=== PATIENT | female | born 1970 | race Caucasian/White ===

== ENCOUNTER 2025-03-04 10:31 | Day surgery (SDC) | payer OTHER, SELFPAY ==
--- OUTSIDE RECORDS SUMMARY | 2024-03-23 06:00 | XMS_ITS ---
Author Organization [facility] Address [address] [place] [address] Care Team Providers Care Tour Counselor Name Role Phone Ruth Holguin Primary Care Provider Kim Palencia Unavailable REASON FOR VISIT 6 month f/u CHRONIC Social History Sex Assigned At : Social History Observation Description Sex Assigned At Female Encounters Encounter Location Date Provider Diagnosis [facility] [address] [place] [address] 03/23/2024 Kim Palencia Plan Of Treatment No Information Progress Notes * MARIA DEL ROSARIO DUGGAN LDOB:1969 (55 yo F)Acc No.[id number]:03/23/2024 Progress Notes Patient: MARIA DEL ROSARIO ZENG Appointment Provider: Nguyễn Palencia NP :1970 A ge:54 Y S ex:Female Date:03/23/2024 Address:[address] [place] [address] RD, A PT Elieser FERANTONIONguyễnCOX [id number] Pcp:Ruth Holguin Subjective: * Chief Complaints: * 1 . 6 month f/u CHRONIC. * Medical History: Objective: * Vitals: Assessment: Plan: * Treatment: * Images: * Electronic signature of Payton Palencia CNP on 03/04/2025 at 10:37 AM EDT Sign off status: Pending * Appointment Provider: Nguyễn Palencia NP Date: 0 03/23/2024 Generated for Printing/Faxing/eTransmitting on: 0 03/04/2025 10:37 AM EDT
--- OUTSIDE RECORDS SUMMARY | 2024-03-24 06:30 | XMS_ITS ---
Author Organization [facility] Address [address] [facility] [place] [address] Care Team Providers Care Training Facilitator Name Role Phone Ruth Holguin Primary Care Provider [phone] REASON FOR VISIT 6 month f/u CHRONIC Social History Sex Assigned At : Social History Observation Description Sex Assigned At Female Encounters Encounter Location Date Provider Diagnosis [facility] [address] [place] [address] 03/24/2024 Ruth Holguin Plan Of Treatment No Information Progress Notes * URBANBALDEVNA LDOB:1969 (55 yo F)Acc No.[id number]:03/24/2024 Progress Notes Patient: MARIA DEL ROSARIO ZENG Provider: Elieser Holguin :1970 A ge:54 Y S ex:Female Date:03/24/2024 Address:[address] [place] [address], A PT [place]INA Mon, [id number] Subjective: * Chief Complaints: * 1 . 6 month f/u CHRONIC. * Medical History: Objective: * Vitals: Assessment: Plan: * Treatment: * Images: * Electronic signature of Joaquin Holguin CNP on 03/04/2025 at 10:37 AM EDT Sign off status: Pending * Provider: Elieser Holguin Date: 03/24/2024 Generated for Jarred carr/Hayley/eTransmitting on: 03/04/2025 10:37 AM EDT
--- OUTSIDE RECORDS SUMMARY | 2024-05-20 07:00 | XMS_ITS ---
Author Organization [facility] Address [address] [facility] [place] [address] Care Team Providers Care Twisting Frame Fixer Name Role Phone Ruth Holguin Primary Care Provider REASON FOR VISIT chronic care f/u Social History Sex Assigned At : Social History Observation Description Sex Assigned At Female Encounters Encounter Location Date Provider Diagnosis [facility] [address] [place] [address] 05/20/2024 Ruth Holguin Plan Of Treatment No Information Progress Notes * JENNIFERBALDEV JANSENNA LDOB:1969 (55 yo F)Acc No.[id number]:05/20/2024 Progress Notes Patient: MARIA DEL ROSARIO ZENG Provider: Elieser Holguin :1970 A ge:54 Y S ex:Female Date:05/20/2024 Address:[address] [place] [address], A PT [place], [id number] Subjective: * Chief Complaints: * 1 . Chronic care f/u. * Medical History: Objective: * Vitals: Assessment: Plan: * Treatment: * Images: * Electronic signature of Joaquin Holguin CNP on 03/04/2025 at 10:38 AM EDT Sign off status: Pending * Provider: Elieser Holguin Date: 0 05/20/2024 Generated for Jarred carr/Hayley/eTransmitting on: 0 03/04/2025 10:38 AM EDT
[2025-03-04] VITALS (8 sets, daily range): BP systolic 121–144; BP diastolic 71–90; PULSE 64–89; TEMP 36.3–36.4; O2SAT 94–100; BMI 43.4
--- OUTSIDE RECORDS SUMMARY | 2025-03-04 10:37 | XMS_ITS | Encounter Summary ---
Author Organization [facility] Address [address] [place] [address] Phone Care Team Providers Care Software Quality Assurance Engineer Name Role Phone Kim Palencia APRN-INSTRUMENTAL MUSIC TEACHER Primary Care P rovider Kim Palencia APRN-INSTRUMENTAL MUSIC TEACHER Primary Care P rovider Encounter Details Date Type Department Care Team (Late st Contact Info) Description 03/29/2023 Scanned Document [facility] [address] [place] [address] Conversion, Onbase Social History Tobacco Use Types Packs/Day Years Used Date Smoking Tobacco: Never Assessed Comments Unknown Sex and Gender Information Value Date Recorded Sex Assigned at Not on file Legal Sex Female 4:43 PM EST Gender Identity Not on file Sexual Orientation Not on file documented as of this encounter Plan of Treatment Not on file documented as of this encounter Procedures Procedure Name Priority Date/Time Associated Diagnosis Comments OUTSIDE IMAGING SCAN 03/29/2023 OUTSIDE IMAGING SCAN 03/29/2023 ELECTROCARDIOGRAM RHYTHM STRIP 03/29/2023 documented in this encounter Results * OUTSIDE IMAGING SCAN (03/29/2023) Anatomical Region Laterality Modality Other Narrative 03/29/2023 Ordered by an unspecified provider. us Onbase Conversion OUTSIDE SCAN Final Result * OUTSIDE IMAGING SCAN (03/29/2023) Anatomical Region Laterality Modality Other Narrative 03/29/2023 Ordered by an unspecified provider. us Onbase Conversion OUTSIDE SCAN Final Result * ELECTROCARDIOGRAM RHYTHM STRIP (03/29/2023) Narrative 03/29/2023 Ordered by an unspecified provider. us Onbase Conversion ECG ORDERABLES Final Result documented in this encounter Visit Diagnoses Not on filedocumented in this encounter Care Teams Software Quality Assurance Engineer Relationship Specialty Start Date End Date Kim Palencia APRN-CNP [address] [place] [address] PCP - General 04/23/23 Kim Palencia APRN-CNP [address] [place] [address] PCP - General 03/31/23 04/22/23 documented as of this encounter
--- OUTSIDE RECORDS SUMMARY | 2025-03-04 10:37 | XMS_ITS | Encounter Summary ---
Author Organization [facility] Address [address] [place] [address] Care Team Providers Care Long Lines Operator Name Role Phone Karen Varela MD Primary Care Provider [phone] Karen Varela MD Unavailable [phone] Encounter Details Date Type Department Care Team (Late st Contact Info) Description 12/16/2023 Orders Only [facility] [place] [address] [facility] [address] [place] [address] Vilma Heard MA Social History Tobacco Use Types Packs/Day Years Used Date Smoking Tobacco: Never Passive Smoke Exposure: Never Smokeless Tobacco: Never Alcohol Use Standard Drinks/Week Comments Never 0 (1 standard drink = 0.6 oz pur e alcohol) caffeine intake: 2-3 cups/day AUDIT-C Answer Date Recorded Q1: How often do you have a drink containing alcohol? Never 01/22/2023 Q2: How many drinks containi ng alcohol do you have on a typical day when you are drinking? Patient does not drink Q3: How often do you have si x or more drinks on one occasion? Never 01/22/2023 PHQ-2 Answer Date Recorded Patient Health Questionnaire-2 Score 0 01/22/2023 Comments No Sex and Gender Information Value Date Recorded Sex Assigned at Not on file Legal Sex Female 10:14 PM EDT Gender Identity Not on file Sexual Orientation Not on file documented as of this encounter Plan of Treatment Upcoming Encounters Date Type Department Care Team (Late Contact Info) Description 03/10/2025 9:30 AM EDT Office Visit [facility] [address] [place] [address] Aron Rivers, DO [address] [place] [address] documented as of this encounter Procedures Procedure Name Priority Date/Time Associated Diagnosis Comments MRI HEAD/BRAIN WO CONTRAS Routine 12/16/2023 8:16 AM EDT documented in this encounter Results * MRI HEAD/BRAIN WO CONTRAS (12/16/2023 8:16 AM EDT) Anatomical Region Laterality Modality Radiographic Shaila ging us Suzie Palencia ENGRAVING PRESS OPERATOR IMG XR PROCEDURES Final Resul t documented in this encounter Visit Diagnoses Not on filedocumented in this encounter Care Teams Long Lines Operator Relationship Specialty Start Date End Date Karen Varela MD [address] [place] [address] PCP - General Family Medicine 03/04/24 Karen Varela MD [address] [place] [address] PCP - Medical [place] Commercial 08/26/23 08/25/99 documented as of this encounter
--- OUTSIDE RECORDS SUMMARY | 2025-03-04 10:37 | XMS_ITS | Encounter Summary ---
Author Organization [facility] Address [address] [place] [address] Phone Care Team Providers Care Polyethylene Bag Machine Operator Name Role Phone Kim Palencia APRN-MEDICAL ASSISTANT Primary Care P rovider Kim Palencia APRN-MEDICAL ASSISTANT Primary Care P rovider Encounter Details Date Type Department Care Team (Late st Contact Info) Description 03/30/2023 Scanned Document [facility] LE[facility] [address] [place] [address] Conversion, Onbase Social History Tobacco Use Types [...] Date/Time Associated Diagnosis Comments OUTSIDE IMAGING SCAN 03/30/2023 ELECTROCARDIOGRAM RHYTHM STRIP 03/30/2023 documented in this encounter Results * OUTSIDE IMAGING SCAN (03/30/2023) Anatomical Region Laterality Modality Other Narrative 03/30/2023 Ordered by an unspecified provider. us Onbase Conversion OUTSIDE SCAN Final Result * ELECTROCARDIOGRAM RHYTHM STRIP (03/30/2023) Narrative 03/30/2023 Ordered by an unspecified provider. us Onbase Conversion ECG ORDERABLES Final Result documented in this encounter Visit Diagnoses Not on filedocumented in this encounter Care Teams Polyethylene Bag Machine Operator Relationship Specialty Start Date End Date Kim Palencia APRN-CNP [address] [place] [address] PCP - General 04/23/23 Kim Palencia APRN-CNP [address] [place] [address] PCP - General 03/31/23 04/22/23 documented as of this encounter
--- OUTSIDE RECORDS SUMMARY | 2025-03-04 10:37 | XMS_ITS | Encounter Summary ---
Author Organization [facility] Address [address] [place] [address] Phone Care Team Providers Care Water Service Dispatcher Name Role Phone Kim Palencia Primary Care P rovider Kim Palencia Primary Care P rovider Encounter Details Date Type Department Care Team (Late st Contact Info) Description 03/29/2023 Orders Only [facility] [address] [place] [address] Conversion, Onbase Social History Tobacco Use Types Packs/Day Years Used Date Smoking Tobacco: Never Assessed Comments Unknown Sex and Gender Information Value Date Recorded Sex Assigned at Not on file Legal Sex Female 4:43 PM EST Gender Identity Not on file Sexual Orientation Not on file documented as of this encounter Plan of Treatment Scheduled Orders Name Type Priority Associated Diagnoses Orde r Schedule OUTSIDE LAB SCAN Lab Ordered: 03/29/2023 documented as of this encounter Visit Diagnoses Not on filedocumented in this encounter Care Teams Water Service Dispatcher Relationship Specialty Start Date End Date Kim Palencia APRN-CNP [address] [place] [address] PCP - General 04/23/23 Kim Palencia APRN-CNP [address] [place] [address] PCP - General 03/31/23 04/22/23 documented as of this encounter
--- OUTSIDE RECORDS SUMMARY | 2025-03-04 10:38 | XMS_ITS | Encounter Summary ---
Author Organization [facility] Address [facility] [place] [address] Care Team Providers Care Coffin Maker Name Role Phone Kim Palencia APRN-FIRST AID ATTENDANT Primary Care Pro vider Encounter Details Date Type Department Care Team (Late st Contact Info) Description 04/24/2023 Orders Only [facility] [address] [place] [phone] External, Scanning Provider Social History Tobacco Use Types Packs/Day Years Used Date Smoking Tobacco: Never Smokeless Tobacco: Never Alcohol Use Standard Drinks/Week Comments Not Currently 0 (1 standard drink = 0.6 oz pur e alcohol) Childcare Answer Date Recorded Childcare Unknown 02/04/2019 Employment Answer Date Recorded Employment Unknown 02/04/2019 Comments Unknown Sex and Gender Information Value Date Recorded Sex Assigned at Not on file Legal Sex Female 11:16 PM EDT Gender Identity Not on file Sexual Orientation Not on file documented as of this encounter Plan of Treatment Not on file documented as of this encounter Procedures Procedure Name Priority Date/Time Associated Diagnosis Comments VASC VENOUS DUPLEX UPPER RIGHT Routine 04/13/2023 11:26 AM EDT LIPID PROFILE Routine 03/31/2023 11:24 AM EDT MULTIPLE LABS Routine 03/31/2023 11:23 AM EDT ECHO COMPLETE WO CONTRAST Routine 03/31/2023 11:21 AM EDT ECG 12-LEAD Routine 03/30/2023 11:21 AM EDT documented in this encounter Results * Vas venous duplex upr single right (04/13/2023 11:26 AM EDT) Anatomical Region Laterality Modality Vascular Right Ultrasound us Scanning Provider External CV VASCULAR ORDERABLE S Final Result * Lipid profile (03/31/2023 11:24 AM EDT) External Cholesterol 163 MANUALLY TRANSCRIBED RESULTS External Cholesterol:Hdl 2.5 MANUALLY TRANSCRIBED RESULTS External Hdl Cholesterol 64 MANUALLY TRANSCRIBED RESULTS External Ldl (Calc) 91 MANUALLY TRANSCRIBED RESULTS External Triglycerides 40 MANUALLY TRANSCRIBED RESULTS External Very Low Lipoprotein 8 MANUALLY TRANSCRIBED RESULTS us Scanning Provider External LAB BLOOD ORDERABLES Edited Result - Final Performing Organization Address [facility] de Phone Number MANUALLY TRANSCRIBED RESULTS * Multiple labs (03/31/2023 11:23 AM EDT) us Scanning Provider External [place] [facility] Final Result Performing Organization Address [facility] de Phone Number MANUALLY TRANSCRIBED RESULTS * Echo complete W/O contrast (03/31/2023 11:21 AM EDT) Anatomical Region Laterality Modality Chest N/A Ultrasound us Scanning Provider External CV ECHO ORDERABLES Fi nal Result * ECG 12 lead (03/30/2023 11:21 AM EDT) us Scanning Provider External ECG ORDERABLES Final Result Performing Organization Address [facility] de Phone Number MANUALLY TRANSCRIBED RESULTS documented in this encounter Visit Diagnoses Not on filedocumented in this encounter Care Teams Coffin Maker Relationship Specialty Start Date End Date Kim Palencia, INSTRUCTOR WARPER-FIRST AID ATTENDANT PCP - General Nurse Practitioner 09/08/21 documented as of this encounter
--- OUTSIDE RECORDS SUMMARY | 2025-03-04 10:38 | XMS_ITS | Encounter Summary ---
Author Organization [employer] Address [id number] [address] [place] [address] Care Team Providers Care Stenographic Court Reporter Name Role Phone Kim Palencia APRN-FURRIER DESIGNER Primary Care Pro vider Encounter Details Date Type Department Care Team (Late st Contact Info) Description 09/15/2021 Orders Only [facility] [address] [place] [phone] Jose Carlos Car MD [address] [place] [address] Hypotension, unspecified hypotension type Social History Tobacco Use Types Packs/Day Years [...] on file Sexual Orientation Not on file COVID-19 Exposure Response Date Recorded In the last month, have you been in contact with someone who was confirmed or suspected to have Coronavirus / COVID-19? No / Unsure 09/08/2021 9:26 AM EST documented as of this encounter Plan of Treatment Not on file documented as of this encounter Procedures Procedure Name Priority Date/Time Associated Diagnosis Comments BASIC METABOLIC PANEL Routine 09/15/2021 Hypotension, unspecified hypotension type documented in this encounter Results * Basic Metabolic Panel (09/15/2021) 09/15/2021 us Jose Carlos Car MD LAB BLOOD ORDERABLES Final Res ult [employer] documented in this encounter Visit Diagnoses Diagnosis Hypotension, unspecified hypotension type documented in this encounter Care Teams Stenographic Court Reporter Relationship Specialty Start Date End Date Kim Palencia, MOTOR BIKE MECHANIC-FURRIER DESIGNER PCP - General Nurse Practitioner 09/08/21 documented as of this encounter
--- OUTSIDE RECORDS SUMMARY | 2025-03-04 10:38 | XMS_ITS | Encounter Summary ---
Author Organization [facility] Address [address] [place] [address] Phone Care Team Providers Care Grazing Examiner Name Role Phone Kim Palencia Primary Care P rovider Kim Palencia Primary Care P rovider Encounter Details Date Type Department Care Team (Late st Contact Info) Description 04/11/2023 Scanned Document [facility] [address] [place] [place] [address] Conversion, Onbase Social History Tobacco Use Types [...] Date/Time Associated Diagnosis Comments OUTSIDE IMAGING SCAN 04/11/2023 documented in this encounter Results * OUTSIDE IMAGING SCAN (04/11/2023) Anatomical Region Laterality Modality Other Narrative 04/11/2023 Ordered by an unspecified provider. us Onbase Conversion OUTSIDE SCAN Final Result documented in this encounter Visit Diagnoses Not on filedocumented in this encounter Care Teams Grazing Examiner Relationship Specialty Start Date End Date Kim Palencia APRN-CNP [address] [place] [address] PCP - General 04/23/23 Kim Palencia, TERRITORY BUSINESS MANAGER-TIN CAN LABORER Formerly [facility] [place] [address] PCP - General 03/31/23 04/22/23 documented as of this encounter
--- OUTSIDE RECORDS SUMMARY | 2025-03-04 10:38 | XMS_ITS | Encounter Summary ---
Author Organization [facility] Address [address] [place] [address] Care Team Providers Care Sonoscope Operator Name Role Phone Karen Varela MD Primary Care Provider [phone] Karen Varela MD Unavailable [phone] Encounter Details Date Type Department Care Team (Late st Contact Info) Description 05/04/2024 Orders Only [facility] [address] [place] [address] Christy Burkett MA Breast cancer screening by mammogram Social History Tobacco Use Types Packs/Day Years Used Date Smoking Tobacco: Never Passive Smoke Exposure: Never Smokeless Tobacco: Never Alcohol Use Standard Drinks/Week Comments Never 0 (1 standard drink = 0.6 oz pur e alcohol) caffeine intake: 2-3 cups/day AUDIT-C Answer Date Recorded Q1: How often do you have a drink containing alcohol? Never 03/04/2024 Q2: How many drinks containi ng alcohol do you have on a typical day when you are drinking? Patient does not drink Q3: How often do you have si x or more drinks on one occasion? Never 03/04/2024 PHQ-2 Answer Date Recorded Patient Health Questionnaire-2 Score 0 03/04/2024 Comments No Sex and Gender Information Value Date Recorded Sex Assigned at Not on file Legal Sex Female 10:14 PM EDT Gender Identity Not on file Sexual Orientation Not on file documented as of this encounter Plan of Treatment Upcoming Encounters Date Type Department Care Team (Late st Contact Info) Description 03/10/2025 9:30 AM EDT Office Visit [facility] [address] [place] [address] Aron Rivers, DO [address] [place] [address] documented as of this encounter Procedures Procedure Name Priority Date/Time Associated Diagnosis Comments BI MAMMOGRAM SCREENING TOMOSYNTHESIS BILATERAL Routine 04/20/2024 4:10 PM EDT Breast cancer screening by mammogram HM COLONOSCOPY Routine 03/09/2024 4:11 PM EDT documented in this encounter Results * Bilateral screening mammogram with tomosynthesis (04/20/2024 4:10 PM EDT) us Karen Varela MD IMG BI PROCEDURES Edited Resu lt - Final * Hm Colonoscopy (03/09/2024 4:11 PM EDT) Anatomical Region Laterality Modality Other us Noms Provider Unallocated HEALTH MAINTENANCE Final Result documented in this encounter Visit Diagnoses Diagnosis Breast cancer screening by mammogram documented in this encounter Care Teams Sonoscope Operator Relationship Specialty Start Date End Date Karen Varela MD [address] [place] [address] PCP - General Family Medicine 03/04/24 Karen Varela MD [address] [place] [address] PCP - Medical [place] [employer] 08/26/23 08/25/99 documented as of this encounter
--- OUTSIDE RECORDS SUMMARY | 2025-03-04 10:38 | XMS_ITS | Encounter Summary ---
Author Organization [facility] Address [address] [place] [address] Phone Care Team Providers Care Slot Operations Director Name Role Phone Kim Palencia Primary Care P rovider Kim Palencia Primary Care P rovider Encounter Details Date Type Department Care Team (Late st Contact Info) Description 04/01/2023 Scanned Document [facility] [address] [place] [address] Conversion, Onbase Social History Tobacco Use Types [...] Date/Time Associated Diagnosis Comments OUTSIDE IMAGING SCAN 04/01/2023 documented in this encounter Results * OUTSIDE IMAGING SCAN (04/01/2023) Anatomical Region Laterality Modality Other Narrative 04/01/2023 Ordered by an unspecified provider. us Onbase Conversion OUTSIDE SCAN Final Result documented in this encounter Visit Diagnoses Not on filedocumented in this encounter Care Teams Slot Operations Director Relationship Specialty Start Date End Date Kim Palencia APRN-CNP [address] [place] [address] PCP - General 04/23/23 Kim Palencia, GALLERY OR MUSEUM CURATOR-ADULT HEALTH CLINICAL NURSE SPECIALIST [place] [address] PCP - General 03/31/23 04/22/23 documented as of this encounter
--- OUTSIDE RECORDS SUMMARY | 2025-03-04 10:38 | XMS_ITS | Encounter Summary ---
Author Organization [facility] Address [address] [place] [address] Phone Care Team Providers Care Ore Miner Name Role Phone Kim Palencia Primary Care P rovider Encounter Details Date Type Department Care Team (Late st Contact Info) Description 01/07/2025 Scanned Document [facility] [address] [place] [phone] Scanning, Generic Provider Social History Tobacco Use Types Packs/Day Years Used Date Smoking Tobacco: Never Alcohol Use Standard Drinks/Week Comments Never 0 (1 standard drink = 0.6 oz pur e alcohol) Comments Unknown Sex and Gender Information Value Date Recorded Sex Assigned at Not on file Legal Sex Female 4:43 PM EST Gender Identity Not on file Sexual Orientation Not on file documented as of this encounter Plan of Treatment Not on file documented as of this encounter Procedures Procedure Name Priority Date/Time Associated Diagnosis Comments STRESS TEST - ONBASE SCAN 01/07/2025 documented in this encounter Results * Stress Test - Onbase Scan (01/07/2025) Narrative 01/07/2025 Ordered by an unspecified provider. us Generic Provider Scanning CV STRESS PROCEDURES F inal Result documented in this encounter Visit Diagnoses Not on filedocumented in this encounter Care Teams Ore Miner Relationship Specialty Start Date End Date Kim Palencia APRN-CNP [address] [place] [address] PCP - General 04/23/23 documented as of this encounter
--- OUTSIDE RECORDS SUMMARY | 2025-03-04 10:38 | XMS_ITS | Encounter Summary ---
Author Organization [facility] Address [address] [place] [address] Care Team Providers Care Injection Machine Operator Name Role Phone JoanWilliam Primary Care Provider [phone] Karen Varela MD Primary Care Provider [phone] Karen Varela MD Unavailable [phone] Encounter Details Date Type Department Care Team (Late st Contact Info) Description 01/19/2023 Abstract [facility] [address] [facility] [address] [place] [address] Aron Rivers DO [address] [facility] [address] [place] [address] Social History Tobacco Use Types Packs/Day Years Used Date Smoking Tobacco: Never Smokeless Tobacco: Never Tobacco Cessation:Counseling Given: Not Answered Alcohol Use Standard Drinks/Week Comments Never 0 (1 standard drink = 0.6 oz pur e alcohol) caffeine 2-3 cups/day AUDIT-C Answer Date Recorded Q1: [...] Patient Health Questionnaire-2 Score 0 01/22/2023 Comments Unknown Sex and Gender Information Value Date Recorded Sex Assigned at Not on file Legal Sex Female 10:14 PM EDT Gender Identity Not on file Sexual Orientation Not on file documented as of this encounter Functional Status * Audit-C Score Answer Date of Assessment Author 0 01/22/2023 11:02 AM ILYAT Elieser Maynard MA * Question Answer Date of Assessment Author Q1: How often do you have a drink containing alcohol? Never 01/22/2023 11:02 AM Bibiana Zabala M A Q2: How many drinks containing alcohol do you have on a typical day when you are drinking? Patient does not drink 01/22/2023 11:02 AM EDT Bibiana Maynard MA Q3: How often do you have six or more drinks on one occasion? Never 01/22/2023 11:02 AM Bibiana Zabala M A * Over the past 2 weeks, how often have you been bothered by any of the following problems? Question Answer Date of Assessment Author Little interest or pleasure in doing things Not at all 01/22/2023 11:02 AM Bibiana Zabala M A Feeling down, depressed, or hopeless Not at all 01/22/2023 11:02 AM Bibiana Zabala M A Patient Health Questionnaire -2 Score 0 01/22/2023 11:02 AM Bibiana Zabala M A documented as of this encounter Plan of Treatment Upcoming Encounters Date Type Department Care Team (Late st Contact Info) Description 03/10/2025 9:30 AM EDT Office Visit [facility] [address] [facility] [address] [place] [address] Aron Rivers DO [address] [facility] [address] [place] [address] documented as of this encounter Visit Diagnoses Not on filedocumented in this encounter Care Teams Injection Machine Operator Relationship Specialty Start Date End Date William Franco DO PCP - General 01/22/23 12/11/23 Karen Varela MD [address] [place] [address] PCP - General Family Medicine 03/04/24 Karen Varela MD [address] [place] [address] PCP - Medical [place] [employer] 08/26/23 08/25/99 documented as of this encounter
--- OUTSIDE RECORDS SUMMARY | 2025-03-04 10:38 | XMS_ITS | Encounter Summary ---
Author Organization [employer] Address [id number] [address] [place] [address] Care Team Providers Care Welding Machine Operator Plasma Arc Name Role Phone Kim Palencia APRN-ROVING CARRIER Primary Care Pro vider Encounter Details Date Type Department Care Team (Late st Contact Info) Description 03/27/2022 [facility] [address] [place] [phone] Taylor Cosme MA Hypotension due to drugs Social History Tobacco Use Types Packs/Day Years [...] have Coronavirus / COVID-19? No / Unsure 03/23/2022 9:07 AM EDT documented as of this encounter Plan of Treatment Not on file documented as of this encounter Procedures Procedure Name Priority Date/Time Associated Diagnosis Comments BASIC METABOLIC PANEL Routine 03/23/2022 Hypotension due to drugs documented in this encounter Results * Basic Metabolic Panel (03/23/2022) 03/23/2022 us Jose Carlos Car MD LAB BLOOD ORDERABLES Edited Re doreen - Final [employer] documented in this encounter Visit Diagnoses Diagnosis Hypotension due to drugs Other iatrogenic hypotension documented in this encounter Care Teams Welding Machine Operator Plasma Arc Relationship Specialty Start Date End Date Kim Palencia, SERVER ADMINISTRATOR-ROVING CARRIER PCP - General Nurse Practitioner 09/08/21 documented as of this encounter
--- OUTSIDE RECORDS SUMMARY | 2025-03-04 10:38 | XMS_ITS | Encounter Summary ---
Author Organization [employer] Address [facility] [id number] [address] [place] [address] Care Team Providers Care Clinical Trials Nurse Name Role Phone Kim Palencia APRN-CARBON PAPER COATING SUPERVISOR Primary Care Pro vider Encounter Details Date Type Department Care Team (Late st Contact Info) Description 09/08/2021 [facility] [address] [place] [phone] External, Scanning Provider Social History Tobacco Use [...] Procedure Name Priority Date/Time Associated Diagnosis Comments ECG 12-LEAD Routine 09/08/2021 PULMONARY FUNCTION TEST Routine 08/02/2021 ECG 12-LEAD Routine 07/29/2021 documented in this encounter Results * ECG 12 lead (09/08/2021) us Scanning Provider External ECG ORDERABLES Final Result Performing Organization Address [facility] Co de Phone Number MANUALLY TRANSCRIBED RESULTS * Pulmonary function test (08/02/2021) us Scanning Provider External PFT ORDERABLES Final Result Performing Organization Address [facility] de Phone Number MANUALLY TRANSCRIBED RESULTS * ECG 12 lead (07/29/2021) us Scanning Provider External ECG ORDERABLES Final Result Performing Organization Address [facility] Phone Number MANUALLY TRANSCRIBED RESULTS documented in this encounter Visit Diagnoses Not on filedocumented in this encounter Care Teams Clinical Trials Nurse Relationship Specialty Start Date End Date Kim Palencia, POWER ELECTRONICS ENGINEER-CARBON PAPER COATING SUPERVISOR PCP - General Nurse Practitioner 09/08/21 documented as of this encounter
--- OUTSIDE RECORDS SUMMARY | 2025-03-04 10:38 | XMS_ITS | Clinical Summary ---
Author Organization [employer] Address [id number] [address] [place] [address] Care Team Providers Care Insurance Producer Name Role Phone Kim Palencia APRN-COMMERCIAL FISHERMAN Primary Care Pro vider Allergies Active Allergy Reactions Criticality Noted Date Comments Coconut Hives 05/20/2020 Tramadol Hives 05/20/2020 Medications ARIPiprazole (ABILIFY) 20 mg tablet 1 tablet Active calcium citrate-vitamin D3 (CITRACAL+D) 315-200 mg-units per tablet 1 tablet with meals Active ziprasidone (GEODON) 80 mg capsule 1 capsule with food Active levothyroxine (SYNTHROID, LEVOTHROID) 88 MCG tablet take 1 tablet by mouth once daily Active topiramate (TOPAMAX) 50 mg tablet 1 tablet in AM & 2 tables in PM Active buPROPion XL (WELLBUTRIN XL) 300 mg 24 hr tablet Pt takes a 150mg and a 300mg tablet at the same time Active tiZANidine (ZANAFLEX) 4 mg capsule 1 tablet as needed Active buPROPion XL (WELLBUTRIN XL) 150 mg 24 hr tablet Take 150 mg by mouth daily. Active busPIRone (BUSPAR) 15 mg tablet Take 15 mg by mouth 2 (two) times a day. Active meclizine (ANTIVERT) 25 mg tablet Chew 25 mg and swallow 3 (three) times a day as needed for dizziness. Active montelukast (SINGULAIR) 10 mg tablet Take 10 mg by mouth nightly. Active multivitamin capsule Take 1 capsule by mouth daily. Active pantoprazole (PROTONIX) 40 mg EC tablet Take 40 mg by mouth daily. Active budesonide-form oteroL (SYMBICORT) 160-4.5 mcg/actuation inhaler Inhale 2 puffs 2 (two) times a day. Active traZODone (DESYREL) 300 MG tablet Take 300 mg by mouth nightly. Active B-complex with vitamin C tablet Take 1 tablet by mouth daily. Active ascorbic acid, vitamin C, (VITAMIN C) 1000 mg tablet Take 1,000 mg by mouth daily. Active zinc sulfate (ZINC-15 ORAL) Take by mouth. Active cetirizine (ZyrTEC) 10 mg tablet Take 10 mg by mouth in the morning. 12/25/2021 Active mirabegron (MYRBETRIQ) 50 mg tablet extended release 24 hr Take 100 mg by mouth nightly. Active fluticasone propionate (FLOVENT DISKUS) 50 mcg/actuation diskus inhaler 1 spray in each nostril 10/06/2021 Active rimegepant (NURTEC ODT) 75 mg tablet,disinteg rating Dissolve 75 mg on tongue as needed. 03/08/2022 Active fludrocortisone (FLORINEF) 0.1 mg tablet Take 1 tablet (0.1 mg total) by mouth in the morning. 90 tablet 03/21/2023 Active midodrine (PROAMATINE) 10 mg tablet Take 1 tablet (10 mg total) by mouth 3 (three) times a day. 270 tablet 03/21/2023 Active potassium chloride (K-TAB,KLOR-CON ) 20 mEq CR tablet Take 1 tablet (20 mEq total) by mouth in the morning. 90 tablet 04/25/2023 Active Active Problems Problem Noted Date Diagnosed Date Hypotension due to drugs 03/23/2022 BPPV (benign paroxysmal positional vertigo) 05/26 Family History Medical History Relation Name Comments Diabetes Mother Hypertension Mother Sleep apnea Mother Diabetes Sister Fibromyalgia Sister Hypertension Sister Relation Name Status Comments Mother Sister Social History Tobacco Use Types Packs/Day Years Used Date Smoking Tobacco: Never Smokeless Tobacco: Never Tobacco Cessation:Counseling Given: No Alcohol Use Standard Drinks/Week Comments Not Currently 0 (1 standard drink = 0.6 oz pur e alcohol) Childcare Answer Date Recorded Childcare Unknown 02/04/2019 Employment Answer Date Recorded Employment Unknown 02/04/2019 Comments Unknown Sex and Gender Information Value Date Recorded Sex Assigned at Not on file Legal Sex Female 11:16 PM EDT Gender Identity Not on file Sexual Orientation Not on file Last Filed Vital Signs Vital Sign Reading Time Taken Comments Blood Pressure 112/70 03/23/2022 9:08 AM EDT Pulse 80 03/23/2022 9:08 AM EDT Temperature - - Respiratory Rate - - Oxygen Saturation - - Inhaled Oxygen Concentration - - Weight 105.7 kg (233 lb) 03/23/2022 9:08 AM EDT Height 167.6 cm (5' 6 ) 03/23/2022 9:08 AM EDT Body Mass Index 37.61 03/23/2022 9:08 AM EDT Plan of Treatment Health Maintenance Due Date Last Done Comments Depression Screening 1983 Tobacco Screening 1983 DTaP,Tdap and Td Vaccines (1 - Tdap) 1990 Pap Smear 01/03/1992 Zoster (Shingles) Vaccine (1 of 2) 2021 Adult BMI Screening 03/23/2023 03/23/2022 COVID-19 Vaccine (4 - 2023-2 5 season) 2024 07/12/2022, 01/17/2021, 12/20/2020 Influenza Vaccine 04/26/2025 07/09/2022, , 06/13/2020, Additional history exists Medical Devices Not on file Insurance [employer] Care Teams Insurance Producer Relationship Specialty Start Date End Date Kim Palencia APRN-COMMERCIAL FISHERMAN PCP - General Nurse Practitioner 09/08/21
--- OUTSIDE RECORDS SUMMARY | 2025-03-04 10:38 | XMS_ITS | Clinical Summary ---
Author Organization [facility] Address [address] [place] [address] Phone Care Team Providers Care Business Editor Name Role Phone Kim Palencia TELEGRAPH MECHANIC-HOOKER ON Primary Care P janey Allergies Active Allergy Reactions Criticality Noted Date Comments Tramadol Hives 11/18/2023 Medications midodrine (Proamatine) 10 mg tablet Take 1 tablet (10 mg) by mouth 3 times a day. Active ARIPiprazole (Abilify) 30 mg tablet Take 1 tablet (30 mg) by mouth once daily. Active buPROPion SR (Wellbutrin SR) 150 mg 12 hr tablet Take 1 tablet (150 mg) by mouth once daily. Do not crush, chew, or split. Active buPROPion XL (Wellbutrin XL) 300 mg 24 hr tablet Take 1 tablet (300 mg) by mouth once daily. Do not crush, chew, or split. Active cetirizine (ZyrTEC) 10 mg chewable tablet Chew 1 tablet (10 mg) once daily at bedtime. Active calcium carbonate (CALCIUM 600 ORAL) Take 1 tablet by mouth 2 times a day. Active estradiol (Estrace) 1 mg tablet Take 1 tablet (1 mg) by mouth 2 times a day. Active fludrocortisone (Florinef) 0.1 mg tablet Take 1 tablet (0.1 mg) by mouth once daily. Active levothyroxine (Synthroid) 88 mcg tablet Take 1 tablet (88 mcg) by mouth once daily in the morning. Take before meals. Active montelukast (Singulair) 10 mg tablet Take 1 tablet (10 mg) by mouth once daily at bedtime. Active mirabegron (Myrbetriq) 50 mg tablet extended release 24 hr 24 hr tablet Take 2 tablets (100 mg) by mouth once daily. Active naproxen (Naprosyn) 500 mg tablet Take 1 tablet (500 mg) by mouth 2 times a day with meals. Active rimegepant (Nurtec ODT) 75 mg tablet,disinteg rating Take 1 tablet (75 mg) by mouth. As directed Active pantoprazole (ProtoNix) 40 mg EC tablet Take 1 tablet (40 mg) by mouth 2 times a day. Do not crush, chew, or split. Active potassium chloride CR 10 mEq ER tablet Take 1 tablet (10 mEq) by mouth once daily. Do not crush, chew, or split. Active sucralfate (Carafate) 1 gram tablet Take 1 tablet (1 g) by mouth 2 times a day before meals. Active tiZANidine (Zanaflex) 4 mg capsule Take 1 capsule (4 mg) by mouth once daily. Active topiramate (Topamax) 25 mg tablet Take 1 tablet (25 mg) by mouth once daily. Active topiramate (Topamax) 50 mg tablet Take 1 tablet (50 mg) by mouth once daily. Active traZODone (Desyrel) 300 mg tablet Take 1 tablet (300 mg) by mouth once daily at bedtime. Active ascorbic acid (Vitamin C) 500 mg tablet Take 1 tablet (500 mg) by mouth once daily. Active zinc gluconate 50 mg tablet Take 1 tablet (50 mg of elemental zinc) by mouth once daily. Active ziprasidone (Geodon) 80 mg capsule Take 1 capsule (80 mg) by mouth 2 times a day with meals. Active Active Problems Problem Noted Date Diagnosed Date Chest pain 11/18/2023 Dizziness 11/18/2023 Hypotension 11/18/2023 Obesity (BMI 30-39.9) 11/18/2023 Encounters Date Type Department Care Team Description 01/07/2025 Scanned Document [facility] [address] [place] [address] Scanning, Generic Provider from Last 3 Months Family History Medical History Relation Name Comments Diabetes Mother Hyperlipidemia Mother Hypertension Mother Diabetes Sister Hypertension Sister Relation Name Status Comments Mother Sister Social History Tobacco Use Types Packs/Day Years Used Date Smoking Tobacco: Never Tobacco Cessation:Counseling Given: Not Answered [...] Sign Reading Time Taken Comments Blood Pressure 120/82 04/23/2023 12:23 PM EDT Pulse 66 04/23/2023 12:23 PM EDT Temperature - - Respiratory Rate - - Oxygen Saturation - - Inhaled Oxygen Concentration - - Weight 115 kg (253 lb) 04/23/2023 12:23 PM EDT Height 167.6 cm (5' 6 ) 04/23/2023 12:23 PM EDT Body Mass Index 40.84 04/23/2023 12:23 PM EDT Plan of Treatment Health Maintenance Due Date Last Done Comments CT Colonography 1971 Colonoscopy 1971 Colorectal Cancer Screening 1971 FIT-DNA (Cologuard) 1971 FIT 1971 HIV Screening 1971 Lipid Panel 1971 Sigmoidoscopy 1971 TSH Level 1971 MMR Vaccines (1 of 1 - Standard series) 01/03/1972 Diabetes Screening 1989 Hepatitis C Screening 1989 Hepatitis B Vaccines (1 of 3 - 19+ 3-dose series) 1990 Cervical Cancer Screening 01/03/1992 HPV/Cotest 01/03/1992 Pap Smear 01/03/1992 DTaP/Tdap/Td Vaccines (1 - Tdap) 1993 Mammogram 2011 Pneumococcal Vaccine (1 of 1 - PCV) 2021 Zoster Vaccines (1 of 2) 2021 Yearly Adult Physical 01/24/2024 01/22/2023 COVID-19 Vaccine (3 - 2023- season) 2024 01/17/2021, 12/20/2020 Influenza Vaccine (#1) 2025 2, 07/17/2021, 06/01/2019, Additional history exists HIB Vaccines Aged Out No longer eligi ble based on patient's age to complete this topic HPV Vaccines (No Doses Required) Completed Hepatitis A Vaccines Aged Out No long er eligible based on patient's age to complete this topic IPV Vaccines Aged Out No longer eligi ble based on patient's age to complete this topic Meningococcal Vaccine Aged Out No luz los eligible based on patient's age to complete this topic Rotavirus Vaccines Aged Out No longer eligible based on patient's age to complete this topic Procedures Procedure Name Priority Date/Time Associated Diagnosis Comments STRESS TEST - ONBASE SCAN 01/07/2025 from Last 3 Months Results * Stress Test - Onbase Scan (01/07/2025) Narrative 01/07/2025 Ordered by an unspecified provider. us Generic Provider Scanning CV STRESS PROCEDURES F inal Result from Last 3 Months Insurance [facility] Care Teams Business Editor Relationship Specialty Start Date End Date Kim Palencia, TELEGRAPH MECHANIC-HOOKER ON [address] [place] [address] PCP - General 04/23/23
--- OUTSIDE RECORDS SUMMARY | 2025-03-04 10:38 | XMS_ITS | Clinical Summary ---
Author Organization [facility] Address [address] [place] [address] Care Team Providers Care Learning Support Resource Room Teacher Name Role Phone Karen Varela MD Primary Care Provider [phone] Karen Varela MD Unavailable [phone] Allergies Active Allergy Reactions Criticality Noted Date Comments Coconut (Cocos Nucifera) Unknown 01/22/2023 Coconut Fatty Acid Unknown,Hives 05/20/2020 Tramadol Hives,Unknown 05/20/2020 Medications Abilify 30 MG tablet Take 30 mg by mouth at bedtime Active ascorbic acid (Vitamin C) 1000 MG tablet Take 1,000 mg by mouth in the morning. Active buPROPion XL (Wellbutrin XL) 150 MG 24 hr tablet 150 mg Daily Active fludrocortisone (Florinef) 0.1 MG tablet Take 1 tablet by mouth in the morning. Active mirabegron ER (Myrbetriq) 50 MG 24 hr tablet Take 100 mg by mouth at bedtime. Active Geodon 80 MG capsule Take 80 mg by mouth in the morning and 80 mg in the evening. Take with meals. Active midodrine (Proamatine) 10 MG tablet Take 10 mg by mouth in the morning and 10 mg before bedtime. Active cetirizine (ZyrTEC) 10 MG tablet 1 (one) time each day at the same time. 01/31/20 Active sucralfate (Carafate) 1 g tablet every 12 (twelve) hours. Active Ubrogepant 100 MG tablet if needed Active nitrofurantoin, macrocrystal-mono hydrate, (Macrobid) 100 MG capsule Take 100 mg by mouth Daily 02/10/20 Active potassium chloride CR (Klor-Con M20) 20 MEQ ER tablet Take 20 mEq by mouth Daily Take with food. 02/10/20 Active saccharomyces boulardii (Florastor) 250 MG capsule as directed Orally Active buPROPion XL (Wellbutrin XL) 300 MG 24 hr tablet Take 300 mg by mouth in the morning. 01/17/20 Active CALCIUM PO Take by mouth Activ e acetaminophen (Tylenol) 500 MG tablet Take by mouth if needed for mild pain Active Multiple Vitamin (MULTI-VITAMIN DAILY PO) Take by mouth Active omeprazole (PriLOSEC) [address] capsule Take 40 mg by mouth in the morning and 40 mg in the evening. Take before meals. Do not crush or chew.. Active montelukast (Singulair) 10 MG tabletIndications :Allergic rhinitis due to other allergic trigger, unspecified seasonality Take 1 tablet (10 mg) by mouth Daily 90 tablet 3 05/21/20 24 2024 Active levothyroxine (Synthroid, Levoxyl) 88 MCG tabletIndications :Acquired hypothyroidism TAKE 1 TABLET BY MOUTH ONCE DAILY 90 tablet 3 06/18/20 Active Ajovy 225 MG/1.5ML auto-injectorIndi cations:Chronic migraine without aura without status migrainosus, not intractable INJECT contents of 1 pen (225 MG) subcutaneously EVERY 30 DAYS 1.5 mL 07/15/20 Active Additional Information Patient not taking.Reported on 01/14/2025 estradiol (Estrace) 1 MG tabletIndications :Hormone replacement therapy TAKE 1 TABLET BY MOUTH ONCE DAILY alternating with 1 TABLET TWICE DAILY 12 HOURS APART EVERY OTHER DAY 145 tablet 2 09/01/19 25 2024 Active doxepin (SINEquan) 10 MG capsuleIndication s:Insomnia, unspecified type TAKE 1 TO 2 CAPSULE(S) BY MOUTH ONCE DAILY at bedtime 60 capsule 12/24/19 25 Active cefdinir (Omnicef) 300 MG capsule Take 300 mg by mouth Daily 01/13/20 25 Active ondansetron (Zofran) 8 MG tablet Take 8 mg by mouth every 8 (eight) hours if needed 03/18/20 Active tiZANidine (Zanaflex) 4 MG tabletIndications :Stress fracture of metatarsal with delayed healing, unspecified laterality, subsequent encounter Take 1 tablet (4 mg) by mouth at bedtime 90 tablet 1 02/11/20 Active tiZANidine (Zanaflex) 4 MG tabletIndications :Stress fracture of metatarsal with delayed healing, unspecified laterality, subsequent encounter Take 1 tablet (4 mg) by mouth at bedtime 30 tablet 2 01/21/20 25 2024 Discontin ued(Reord er) ibuprofen 800 MG tabletIndications :Nephrolithiasis Take 1 tablet (800 mg) by mouth every 6 (six) hours if needed for mild pain for up to 10 days 40 tablet 3 02/17/20 25 2024 Active Problems Problem Noted Date Diagnosed Date Superficial vein thrombosis 03/03/2024 Skin tag 03/03/2024 Blurred vision 12/12/2023 Dizziness 12/12/2023 Nonintractable headache 12/12/2023 Vertigo 12/12/2023 Vestibular migraine 12/06/2023 Chest pain 11/18/2023 Allergic rhinitis 01/22/2023 Gastroesophageal reflux disease 01/22/2023 Hypothyroidism 01/22/2023 Migraine 01/22/2023 Stress incontinence of urine 01/22/2023 Hypotension due to drugs 03/23/2022 BPPV (benign paroxysmal positional vertigo) 05/26 Encounters Date Type Department Care Team Description 02/16/2025 Telephone [facility] [address] [place] [address] Karen Varela MD Medication Question 02/10/2025 Refill [facility] [address] [place] [address] Laura Knowles MA Stress fracture of metatarsal with delayed healing, unspecified laterality, subsequent encounter 01/20/2025 Refill [facility] [address] [place] [address] Laura Knowles MA Stress fracture of metatarsal with delayed healing, unspecified laterality, subsequent encounter 01/14/2025 12:20 PM EDT Office Visit [facility] [address] [place] [address] Karen Varela MD Hypotension due to drugs (Primary Dx); Celiac disease (HCC); Chest pain, unspecified type; Morbid (severe) obesity due to excess calories (CMS-HCC); Body mass index (BMI) 40.0-44.9, adult (CMS-HCC); Bipolar disorder, current episode depressed, moderate (HCC); OAB (overactive bladder) 01/14/2025 [facility] flowsheet [facility] [address] [place] [id number] Karen Varela MD 01/14/2025 Travel 12/23/2024 Refill [facility] [address] [place] [id number] Marsha Calderon NP Insomnia, unspecified type from Last 3 Months Immunizations Immunization Administration Dates Next Due Influenza, injectable, quadrivalent 07/17/2021,1 ,06/17/2018 Influenza, injectable, quadr ivalent, preservative free 07/09/2022 Influenza, seasonal, injectable 06/04/2024 Influenza, seasonal, injecta ble, preservative free 06/20/2015 Moderna SARS-CoV-2 Booster Vaccination Moderna SARS-CoV-2 Vaccination 01/17/2021,2020 SARS-CoV-2, Unspecified 06/04/2024 Family History Medical History Relation Name Comments No Known Problems Father ADD / ADHD Mother Atrial fibrillation Mother Diabetes Mother Heart disease Mother Hyperlipidemia Mother Hypertension Mother Kidney disease Mother Mental illness Mother Migraines Mother Obesity Mother Osteoarthritis Mother Osteoporosis Mother ADD / ADHD Sibling Allergies Sibling Asthma Sibling Depression Sibling Diabetes Sibling Heart disease Sibling Hyperlipidemia Sibling Hypertension Sibling Mental illness Sibling Obesity Sibling car accident Son Relation Name Status Comments Father Alive Mother Alive Sibling Son Social History Tobacco Use Types Packs/Day Years Used Date Smoking Tobacco: Never Passive Smoke Exposure: Never Smokeless Tobacco: Never Tobacco Cessation:Counseling Given: Yes Alcohol Use Standard Drinks/Week Comments Never 0 [...] Sign Reading Time Taken Comments Blood Pressure 100/68 01/14/2025 12:22 PM EDT Pulse 84 01/14/2025 12:22 PM EDT Temperature 36.5 C (97.7 F) 01/14/2025 12:22 PM EDT Respiratory Rate - - Oxygen Saturation 98% 01/14/2025 12:22 PM EDT Inhaled Oxygen Concentration - - Weight 120 kg (265 lb) 01/14/2025 12:22 PM EDT Height 167.6 cm (5' 6 ) 01/14/2025 12:22 PM EDT Body Mass Index 42.77 01/14/2025 12:22 PM EDT Plan of Treatment Upcoming Encounters Date Type Department Care Team (Late st Contact Info) Description 03/10/2025 9:30 AM EDT [facility] [address] [facility] [address] [place] [id number] Aron Rivers, DO [address] [facility] [address] [place] [address] Health Maintenance Due Date Last Done Comments CT Colonography 1971 FIT-DNA 1971 FIT 1971 FOBT 1971 Sigmoidoscopy 1971 Mammogram 04/20/2025 04/20/2024, 04/16/2023, 03/0 08/2022 Influenza Vaccine (#1) 2025 , 06/10/2023, 07/09/2022, Additional history exists Colonoscopy 03/27/2034 03/27/2024, 03/09/2024 Colorectal Cancer Screening 03/27/2034 Procedures Procedure Name Priority Date/Time Associated Diagnosis Comments BI MAMMOGRAM SCREENING TOMOSYNTHESIS BILATERAL Routine 04/20/2024 4:10 PM EDT Breast cancer screening by mammogram HM COLONOSCOPY Routine 03/27/2024 5:24 PM EDT from Last 3 Months or Most Recently Relevant to Health Maintenance Results * Bilateral screening mammogram with tomosynthesis (04/20/2024 4:10 PM EDT) us Karen Varela MD IMG BI PROCEDURES Edited Resu lt - Final * Hm Colonoscopy (03/27/2024 5:24 PM EDT) Anatomical Region Laterality Modality Other us Noms Provider Unallocated MD HEALTH MAINTENANCE Final Result from Last 3 Months or Most Recently Relevant to Health Maintenance Insurance [employer] Care Teams Learning Support Resource Room Teacher Relationship Specialty Start Date End Date Karen Varela MD [address] [place] [address] PCP - General Family Medicine 03/04/24 Karen Varela MD [address] [place] [address] PCP - Medical [place] [employer] 08/26/23 08/25/99
--- OUTSIDE RECORDS SUMMARY | 2025-03-04 10:38 | XMS_ITS | Patient Health Record ---
Author Organization [facility] Address [address] [place] [address] Care Team Providers Care Junior Java Developer Name Role Phone Ruth Holguin Primary Care Provider Kim Palencia Unavailable Allergies Allergen (clinical drug ingredient) Drug/Non Drug Allergy documented on EMR Reaction Allergy Type Onset Date Status tramadol Ultram hives Drug Allergy Active coconut allergenic extract Coconut (Diagnostic) Unknown Drug Allergy Active Reason For Referral No Information Medications Medication SIG (Take, Route, Frequency, Duration) Notes Start Date End Date Status tiZANidine HCl 4 MG take 1 tablet by mouth once daily if needed; Duration: 30 days Active buPROPion HCl ER (XL) 150 MG 1 tablet in the morning Orally Once a day; Duration: 30 day(s) *SPROUT Active Abilify 30 MG 1 tablet Orally Once a day; Duration: 30 day(s) *DR MICHEL Active Wellbutrin XL 300 MG 1 tablet in the morning Orally Once a day *DR NELLAT 450 mg Active Pantoprazole Sodium 40 MG take 1 tablet by mouth twice a day Oral; Duration: 30 Active Lidocaine HCl 4 % 1 application Externally Three times a day 04/17/2023 Active Myrbetriq 50 MG 1 tablet Orally Once a day *UROLOGY Active Probiotic 250 MG as directed Orally Active Meclizine HCl Active Calcium + D 315-200 MG-UNIT 1 tablet with meals Orally Twice a day; Duration: 30 day(s) Active Zinc 100 MG 1 tablet Orally Once a day; Duration: 30 day(s) 10/26/2020 Active Albuterol Sulfate HFA 108 (90 Base) MCG/ACT 1 puff as needed Inhalation every 4 hrs; Duration: 30 Active Levothyroxine Sodium 88 MCG take 1 tablet by mouth once daily 30; Duration: 90 days Active Fluticasone Propionate 50 MCG/ACT instill 1 spray into each nostril once daily; Duration: 30 Active Cetirizine HCl 10 MG take 1 tablet by mouth once daily; Duration: 30 Active Macrobid 100 MG 1 capsule with food Orally every 12 hrs *UROLOGY Active Montelukast Sodium 10 MG take 1 tablet b y mouth once daily; Duration: 30 day(s) Active Fludrocortisone Acetate 0.1 MG 1 tablet Orally Once a day *CARDIOLOGY Active Magnesium Oxide -Mg Supplement 400 (240 Mg) MG TAKE 1 TABLET BY MOUTH ONCE DAILY Oral; Duration: 90 Days Active Ajovy 225 MG/1.5ML as directed Subcutaneous Active Potassium Chloride Kim ER 20 mEq TAKE 1 TABLET BY MOUTH ONCE DAILY WITH FOOD; Duration: 30 Active Doxepin HCl Active Ubrelvy 50 MG 1 tablet may take second dose at least 2 hours after first dose as needed Orally Once a day *NEUROLOGY Active Geodon 80 mg 1 capsule with food Orally twice a day (bid) DR MICHEL Active Midodrine HCl 10 MG 1 tablet Orally Three times a day *CARDIOLOGY Active Ipratropium [place] 0.06 % ADMINISTER 2 SPRAYS into each nostril IN THE MORNING, 2 SPRAYS IN THE EVENING, AND 2 SPRAYS BEFORE bedtime Nasal; Duration: 30 Days Active Sucralfate 1 GM 1 tablet on an empty stomach Orally Twice a day *GI Active Immunizations Vaccine Route Administration Date Status Comme nts Influenza 3+ PRIVATE Unknown 06/01/2019 Administered Done at pharmacy Influenza 3+ PRIVATE Unknown 07/17/2021 Administered Influenza-Adult Unknown 06/17/2018 Administered Receive d at Pharmacy MODERNA IM Intramuscular 12/20/2020 Administered MODERNA IM Intramuscular 01/17/2021 Administered MODERNA BIVALENT IM Intramuscular 07/12/2022 Administered zzz Unknown 06/28/2015 Administered zzz do not use Adult flu IM Intramuscular 06/04/2017 Administered zzz do not use FLUARIX 3 YRS AND OLDER Adult IM Intramuscular 06/18/2016 Administered Social History Tobacco Use: Social History Observation Description Date Details (start date - stop date) Never Smoker NA - NA Sex Assigned At : Social History Observation Description Sex Assigned At Female Tobacco Screen: Question Answer Notes Are you a: never smoker Sexual Hx: Question Answer Notes Had sex in the last 12 months (vaginal, oral, or anal)? Yes Have you ever had an STD? No Alcohol Screening: Question Answer Notes Did you have a drink containing alcohol in the p ast year? No Interpretation Negative Depression Screening (PHQ-9): Question Answer Notes Little interest or pleasure in doing things Josseline ral days Feeling down, depressed, or hopeless Several day s Trouble falling or staying asleep, or sleeping t oo much Not at all Feeling tired or having little energy Not at all Poor appetite or overeating Not at all Feeling bad about yourself-o r that you are a failure or have let yourself or your family down Not at all Trouble concentrating on thi ngs, such as reading the newspaper or watching television Not at all Moving or speaking so slowly that other people could have noticed. Or the opposite being so fidgety or restless that you have been moving around a lot more than usual Not at all PRAPARE Question Answer Notes Date Completed/Updated: 03/08/2022 What is your current housing situation? I have h ousing Are you worried about losing your housing? No What is the highest level of school that you have finished? 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 Check all that apply I do not have problems meeting my needs Has lack of transportation k ept you from medical appointments, meetings, work or from getting things needed for daily living? No How often do you see or talk to people that you care about and feel close to? (For example: talking to friends on the phone, visiting friends or family, going to taoist or club meetings) More than 5 times a week How stressed are you? Stress is when someone feels tense, nervous, anxious, or cant sleep at night because their mind is troubled Very much In the past year have you sp ent more than 2 nights in a row in a fci, long term, alf center, or juvenile correctional facility? No Are you a refugee? No What country are you from? [place] Do you feel physically and e motionally safe where you currently live? Yes In the past year, have you b een afraid of your partner or ex-partner? No PRAPARE Score: 4 AUDIT-C (Standard) Question Answer Notes Did you have a drink containing alcohol in the p ast year? No Points 0 Interpretation Negative Tobacco Control (Standard) Question Answer Notes Tobacco use: Nonsmoker Section Notes: 12/12/15: Denies tobacco, lorena y rarely any ETOH and denies IDU 12/12/15: Denies tobacco, lorena y rarely any ETOH and denies IDU 12/12/15: Denies tobacco, lorena y rarely any ETOH and denies IDU 12/12/15: Denies tobacco, lorena y rarely any ETOH and denies IDU 12/12/15: Denies tobacco, lorena y rarely any ETOH and denies IDU Problems Problem Type SNOMED Code ICD Code Onset Dates Problem Status W/U Status Risk Notes Problem Skin tag (52517070) Skin tag (L91.8) Active con firmed Problem Hypothyroidism (63532433) Hypothyroidism (acquired) (E03.9) Active confirmed Problem Gastroesophageal reflux disease (555580034) GERD without esophagitis (K21.9) Active confirmed Problem Migraine (16239705) Migraine (G43.909) Active confirmed Problem Constipation (71459116) Constipation, unspecified constipation type (K59.00) Active confirmed Problem SI - Stress incontinence (88779773) Stress incontinence (N39.3) Active confirmed Problem Superficial vein thrombosis (034469381) Superficial vein thrombosis (I82.890) Active confirmed Problem Allergic rhinitis (54923229) Allergic rhinitis, unspecified seasonality, unspecified trigger (J30.9) Active confirmed Plan Of Treatment No Information Insurance Providers Payer Name Payer Address Payer Phone Subscriber Number Group Number Insured Name Patient Relationship to Insured Coverage Start Date Coverage End Date [employer] Super[employer] [address] [address] [place] [address] [id number] MARIA DEL ROSARIO DARNELL Self - patient is the insured 2 [facility] ed [address] [address] [place] [address] [id number] MARIA DEL ROSARIO DARNELL Self - patient is the insured 8 0 zMEDICAID C[employer] after [facility]- termed 22 [address] [place] [address] [phone] [id number] MARIA DEL ROSARIO DARNELL Self - patient is the insured 8 0 [facility]ly [facility] rmed 22. [address] CLAIMS [place] [address] [id number] MARIA DEL ROSARIO DARNELL Self - patient is the insured 0 3 zMEDICAID C[employer] after [id number] ermed 22 [address] [place] [address] [phone] [id number] MARIA DEL ROSARIO DARNELL Self - patient is the insured 0 3 Medications Administered Medication Instructions Date of Administration Dosage Notes TORADOL 09/06/2022 2 mL TORADOL 12/27/2022 2 mL TORADOL 01/16/2023 2 mL Medical (General) History Medical History History ICD Code Hypothyroidism depression vericose veins endometriosis gastroesophageal reflux disease (GERD) Surgical History Surgery Date(Month/Year) vericose veins X2 both legs endometriosis removed Right inguinal hernia repair tonsillectomy Right trigger thumb release Bilateral oophrectomy bunion surgery 08/08 total abdominal hysterectomy colonoscopy cystoscopy toe nail removal Left foot surgery 12/2023 Hospitalization History Reason Date(Month/Year) psych unit 2014 vertigo 03/2023 chest pain, hypokalemia 07/2021
--- OUTSIDE RECORDS SUMMARY | 2025-03-04 10:38 | XMS_ITS | Encounter Summary ---
Author Organization [facility] Address [address] [place] [address] Phone Care Team Providers Care Draw Frame Tender Name Role Phone Kim Palencia Primary Care P rovider Kim Palencia Primary Care P rovider Encounter Details Date Type Department Care Team (Late st Contact Info) Description 04/13/2023 Scanned Document [facility] LEGACY [address] [place] [address] Conversion, Onbase Social History Tobacco Use Types [...] Date/Time Associated Diagnosis Comments OUTSIDE IMAGING SCAN 04/13/2023 documented in this encounter Results * OUTSIDE IMAGING SCAN (04/13/2023) Anatomical Region Laterality Modality Other Narrative 04/13/2023 Ordered by an unspecified provider. us Onbase Conversion OUTSIDE SCAN Final Result documented in this encounter Visit Diagnoses Not on filedocumented in this encounter Care Teams Draw Frame Tender Relationship Specialty Start Date End Date Kim Palencia APRN-CNP [address] [place] [address] PCP - General 04/23/23 Kim Palencia, ELECTRIC FORK OPERATOR-COUNTERINTELLIGENCE AGENT [facility] [place] [address] PCP - General 03/31/23 04/22/23 documented as of this encounter
--- OUTSIDE RECORDS SUMMARY | 2025-03-04 10:38 | XMS_ITS | Encounter Summary ---
Author Organization [facility] Address [address] [place] [address] Care Team Providers Care Barrel Assembler Name Role Phone Karen Varela MD Primary Care Provider [phone] Karen Varela MD Unavailable [phone] Encounter Details Date Type Department Care Team ([facility] st Contact Info) Description 01/01/2024 External Result Encounter [facility] External Department Unsolicited Ar Barron DPM [address] [facility] [address] [place] [address] Social History Tobacco Use Types Packs/Day Years [...] on file documented as of this encounter Miscellaneous Notes * Result Encounter Note - Ar Barron DPM - 01/01/2024 3:04 PM EDT Needs cardio clearance based on ekg documented in this encounter Plan of Treatment Upcoming Encounters Date Type Department Care Team (Late st Contact Info) Description 03/10/2025 9:30 AM EDT Office Visit [facility] OB [address] [place] [phone] Aron Rivers, DO [address] [place] [address] documented as of this encounter Procedures Procedure Name Priority Date/Time Associated Diagnosis Comments ECG 12-LEAD 01/01/2024 1:51 PM EDT documented in this encounter Results * ECG 12 lead (01/01/2024 1:51 PM EDT) 01/01/2024 1:51 PM EDT [facility] - 01/01/2024 3:01 PM EDT [facility] Main [address] [address] Electrocardiograph Report Signed Patient: Mignon Max MR#: [id number] : 1970 Acct:[id number] Age/Sex: 53 / F ADM Date: 01/01/24 Loc: Room: Type: [facility] Attending Dr: Ar Barron DPM Ordering Provider: Ar Barron DPM Date of Service: 01/01/2404/18/1339 ECG/ECG 12 lead ECG: pst Copies to: Test Reason : Blood Pressure : / mmHG Vent. Rate : 083 BPM Atrial Rate : 083 BPM P-R Int : 162 ms QRS Dur : 084 ms QT Int : 382 ms P-R-T Axes : 043 -32 041 degrees QTc Int : 448 ms Normal sinus rhythm Left axis deviation Septal infarct , age undetermined Abnormal ECG When compared with ECG of 30-MAR-2023 16:38, Septal infarct is now present Confirmed by ERASMO PURDY FACTYRA Hannah ([id number]) on 01/01/2024 3:01:10 PM Referred By: ALISA Electronically Signed By:TYRA KAUFMAN MD [facility] Transcribed By: JASKARAN Signed By Tyra Kaufman MD, [facility] 01/01/24 1501 Procedure Note Tyra Kaufman MD - 01/01/2024 [facility] Main [place] [address] [place] [address] Electrocardiograph Report Signed Patient: Mignon Max LMR#: [id number] : 1970Acct:[id number] Age/Sex: 53 / FADM Date: 01/01/24 Loc: Room:Type: [facility] Attending Dr: Ar Barron DPM Ordering Provider: Ar Barron DPM Date of Service: 01/01/2404/18/1339 ECG/ECG 12 lead ECG: pst Copies to: Test Reason : Blood Pressure : / mmHG Vent. Rate : 083 BPM Atrial Rate : 083 BPM P-R Int : 162 ms QRS Dur : 084 ms QT Int : 382 ms P-R-T Axes : 043 -32 041 degrees QTc Int : 448 ms Normal sinus rhythm Left axis deviation Septal infarct , age undetermined Abnormal ECG When compared with ECG of 30-MAR-2023 16:38, Septal infarct is now present Confirmed by ERASMO PURDY [facility] Hannah ([id number]) on 01/01/2024 3:01:10 PM Referred By: ALISA Electronically Signed By:TYRA [facility]AUFMAN [facility] Transcribed By: JASKARAN Signed By Tyra Kaufman MD, [facility] 01/01/24 1501 us Ar Barron DPM ECG ORDERABLES Final Resul t [address] [address], documented in this encounter Visit Diagnoses Not on filedocumented in this encounter Care Teams Barrel Assembler Relationship Specialty Start Date End Date Karen Varela MD [address] [place] [address] PCP - General Family Medicine 03/04/24 Karen Varela MD [address] [place] [address] PCP - Medical [place] [employer] 08/26/23 08/25/99 documented as of this encounter
--- OUTSIDE RECORDS SUMMARY | 2025-03-04 10:38 | XMS_ITS | Encounter Summary ---
Author Organization [facility] Address [address] [place] [address] Phone Care Team Providers Care Home Health Care Case Manager Name Role Phone Kim Palencia Primary Care P janey Encounter Details Date Type Department Care Team (Late st Contact Info) Description 04/23/2023 Scanned Document [facility] LEGACY [address] [place] [address] Conversion, Onbase Social History Tobacco Use Types Packs/Day Years Used Date Smoking Tobacco: Never Assessed Comments Unknown Sex and Gender Information Value Date Recorded Sex Assigned at Not on file Legal Sex Female 4:43 PM EST Gender Identity Not on file Sexual Orientation Not on file documented as of this encounter Functional Status * Little interest or pleasure in doing things Answer Date of Assessment Author Not at all 04/23/2023 12:23 PM EDT Conversi on, [employer] Vitals documented as of this encounter Plan of Treatment Not on file documented as of this encounter Visit Diagnoses Not on filedocumented in this encounter Care Teams Home Health Care Case Manager Relationship Specialty Start Date End Date Kim Palencia APRN-CNP [address] [place], [place] [id number] PCP - General 04/23/23 documented as of this encounter
--- OUTSIDE RECORDS SUMMARY | 2025-03-04 10:38 | XMS_ITS | Encounter Summary ---
Author Organization [facility] Address [address] [place] [address] Phone Care Team Providers Care Senior Drupal Developer Name Role Phone Kim Palencia Primary Care P rovider Kim Palencia Primary Care P rovider Encounter Details Date Type Department Care Team (Late st Contact Info) Description 03/31/2023 Scanned Document [facility] [address] [place] [address] Conversion, Onbase Social History Tobacco Use Types [...] Procedure Name Priority Date/Time Associated Diagnosis Comments ECHOCARDIOGRAM 03/31/2023 documented in this encounter Results * ECHOCARDIOGRAM (03/31/2023) Narrative 03/31/2023 Ordered by an unspecified provider. us Onbase Conversion CV ECHO PROCEDURES Final Resul t documented in this encounter Visit Diagnoses Not on filedocumented in this encounter Care Teams Senior Drupal Developer Relationship Specialty Start Date End Date Kim Palencia APRN-CNP [address] [place] [address] PCP - General 04/23/23 Kim Palencia, FREELANCE DIRECTOR-STEEL ESTIMATOR [facility] [place] [address] PCP - General 03/31/23 04/22/23 documented as of this encounter
--- OUTSIDE RECORDS SUMMARY | 2025-03-04 10:38 | XMS_ITS | Encounter Summary ---
Author Organization [facility] Address [address] [place] [address] Phone Care Team Providers Care Flooring Grader Name Role Phone Kim Palencia Primary Care P rovider Kim Palencia Primary Care P rovider Encounter Details Date Type Department Care Team (Late st Contact Info) Description 03/30/2023 Orders Only [facility] LEGACY [address] [place] [address] Conversion, Onbase Social History Tobacco Use Types [...] r Schedule OUTSIDE LAB SCAN Lab Ordered: 03/30/2023 documented as of this encounter Visit Diagnoses Not on filedocumented in this encounter Care Teams Flooring Grader Relationship Specialty Start Date End Date Kim Palencia APRN-CNP [address] [place] [address] PCP - General 04/23/23 Kim Palencia APRN-CNP [address] [place] [address] PCP - General 03/31/23 04/22/23 documented as of this encounter
--- OUTSIDE RECORDS SUMMARY | 2025-03-04 10:38 | XMS_ITS | Encounter Summary ---
Author Organization [facility] Address [address] [place] [address] Care Team Providers Care Leak Detection Engineer Name Role Phone Karen Varela MD Primary Care Provider Karen Varela MD Unavailable [phone] Encounter Details Date Type Department Care Team (Late Contact Info) Description 01/17/2024 Abstract [facility] POD [address] [place] [phone] Ar Barron DPM [address] [address] Social History Tobacco Use Types Packs/Day Years [...] OB [address] [place] [address] Aron Rivers, DO [address] [place] [address] documented as of this encounter Visit Diagnoses Not on filedocumented in this encounter Care Teams Leak Detection Engineer Relationship Specialty Start Date End Date Karen Varela MD [address] [place] [address] PCP - General Family Medicine 03/04/24 Karen Varela MD [address] [place] [address] PCP - Medical [place] [employer] 08/26/23 08/25/99 documented as of this encounter
--- OUTSIDE RECORDS SUMMARY | 2025-03-04 10:38 | XMS_ITS | Encounter Summary ---
Author Organization [employer] Address [id number] [address] [place] [address] Care Team Providers Care Hr Payroll Coordinator Name Role Phone Kim Palencia APRN-MACHINE MOLDER SQUEEZE Primary Care Pro vider Encounter Details Date Type Department Care Team (Late st Contact Info) Description 09/26/2021 Orders Only [facility] [address] [place] [phone] Jose Carlos Car MD [address] [place] [address] Hypotension, unspecified hypotension type Social History Tobacco [...] Associated Diagnosis Comments BASIC METABOLIC PANEL Routine 09/22/2021 Hypotension, unspecified hypotension type documented in this encounter Results * Basic Metabolic Panel (09/22/2021) 09/22/2021 us Jose Carlos Car MD LAB BLOOD ORDERABLES Final Res ult [facility] documented in this encounter Visit Diagnoses Diagnosis Hypotension, unspecified hypotension type documented in this encounter Care Teams Hr Payroll Coordinator Relationship Specialty Start Date End Date Kim Palencia, OCEAN TRANSPORTATION INTERMEDIARY-MACHINE MOLDER SQUEEZE PCP - General Nurse Practitioner 09/08/21 documented as of this encounter
--- OUTSIDE RECORDS SUMMARY | 2025-03-04 10:38 | XMS_ITS | Encounter Summary ---
Author Organization [facility] Address [address] [place] [address] Care Team Providers Care Delivery Coordinator Name Role Phone Karen Varela MD Primary Care Provider [phone] Karen Varela MD Unavailable [phone] Encounter Details Date Type Department Care Team (Late Contact Info) Description 04/03/2024 Orders Only [facility] [place] [address] [place] [address] Unallocated, Noms Provider, [address] [place] [address] Social History Tobacco Use Types Packs/Day Years [...] OB [address] [place] [address] Aron Rivers, DO [address] [place] [address] documented as of this encounter Procedures Procedure Name Priority Date/Time Associated Diagnosis Comments HM COLONOSCOPY Routine 03/27/2024 5:24 PM EDT documented in this encounter Results * Hm Colonoscopy (03/27/2024 5:24 PM EDT) Anatomical Region Laterality Modality Other us Noms Provider Unallocated HEALTH MAINTENANCE Final Result documented in this encounter Visit Diagnoses Not on filedocumented in this encounter Care Teams Delivery Coordinator Relationship Specialty Start Date End Date Karen Varela MD [address] [place] [address] PCP - General Family Medicine 03/04/24 Karen Varela MD [address] [place] [address] PCP - Medical [place] [employer] 08/26/23 08/25/99 documented as of this encounter
--- OUTSIDE RECORDS SUMMARY | 2025-03-04 10:38 | XMS_ITS | Encounter Summary ---
Author Organization [employer] Address [id number] [address] [place] [address] Care Team Providers Care Eeg Technician Name Role Phone Kim Palencia APRN-TAN Primary Care Pro vider Reason for Visit * Reason Comments Med Refill Encounter Details Date Type Department Care Team (Late st Contact Info) Description 08/13/2022 Refill [facility] [address] [facility] [address] [place] [address] Abida Castanon, PA-C [address] [facility] prov left org 11/24/23 [place] [address] Med Refill Social History Tobacco Use Types Packs/Day Years [...] on filedocumented in this encounter Care Teams Eeg Technician Relationship Specialty Start Date End Date Kim Palencia APRN-PROPERTY STAFF ACCOUNTANT PCP - General Nurse Practitioner 09/08/21 documented as of this encounter
--- OUTSIDE RECORDS SUMMARY | 2025-03-04 10:38 | XMS_ITS | Encounter Summary ---
Author Organization [facility] Address [address] [place] [address] Care Team Providers Care Mold Stamper Name Role Phone Karen Varela MD Primary Care Provider [phone] Karen Varela MD Unavailable [phone] Encounter Details Date Type Department Care Team (Late Contact Info) Description 03/10/2024 Orders Only [facility] [address] [place] [address] Unallocated, Noms Provider, [address] [place] [address] Social History Tobacco Use Types Packs/Day Years [...] [address] [place] [address] Aron Rivers, DO [address] [place] [address] documented as of this encounter Procedures Procedure Name Priority Date/Time Associated Diagnosis Comments BI MAMMOGRAM SCREENING TOMOSYNTHESIS BILATERAL Routine 04/16/2023 4:26 PM EDT documented in this encounter Results * Bilateral screening mammogram with tomosynthesis (04/16/2023 4:26 PM EDT) Anatomical Region Laterality Modality Breast Bilateral Mammography us Noms Provider Unallocated MD CRUZ BI PROCEDURES F inal Result documented in this encounter Visit Diagnoses Not on filedocumented in this encounter Care Teams Mold Stamper Relationship Specialty Start Date End Date Karen Varela MD [address] [place] [address] PCP - General Family Medicine 03/04/24 Karen Varela MD [address] [place] [address] PCP - Medical [place] [employer] 08/26/23 08/25/99 documented as of this encounter
--- OUTSIDE RECORDS SUMMARY | 2025-03-04 10:38 | XMS_ITS | Encounter Summary ---
Author Organization [facility] Address [address] [place] [address] Care Team Providers Care Textile Dyer Name Role Phone Karen Varela MD Primary Care Provider [phone] Karen Varela MD Unavailable [phone] Encounter Details Date Type Department Care Team (Late Contact Info) Description 01/15/2024 External Result Encounter [facility] External Department Unsolicited Ar Barron DPM [address] [address] Social History Tobacco Use Types Packs/Day Years [...] Upcoming Encounters Date Type Department Care Team ([facility] Contact Info) Description 03/10/2025 9:30 AM EDT Office Visit [facility] OB [address] [place] [address] Aron Rivers, DO [address] [place] [address] documented as of this encounter Procedures Procedure Name Priority Date/Time Associated Diagnosis Comments XR FOOT 1-2 VIEWS LEFT 01/15/2024 2:58 PM EDT documented in this encounter Results * XR foot 1 or 2 views left (01/15/2024 2:58 PM EDT) Anatomical Region Laterality Modality Lower Extremities, Foot Left [facility] 01/15/2024 2:58 PM EDT Impressions 01/15/2024 3:02 PM EDT Intraoperative views of the left foot demonstrate hardware manipulation of the second and third digits. Impression dictated by: Neptali Oseguera M.D.01/15/2024 2:59 PM Dictation Location: [place] [address] Transcribed By: [place] 01/15/24 1459 Dictated By: Neptali Oseguera II, MD 01/15/24 1458 Signed By: <Electronically signed by Neptali Oseguera II, MD in [place]> 01/15/24 1459 Narrative 01/15/2024 3:02 PM EDT [facility] Main [address] [address] XRay Report Signed Patient: Mignon Max MR#: [id number] : 1970 Acct:[id number] Age/Sex: 54 / F ADM Date: 01/15/24 Loc: [place] Room: Type: [facility] Attending Dr: Ar Barron DPM Copies to: Ar Barron DPM Ordering Provider: Ar Barron DPM Date of Service: 01/15/24 XR/XR foot LT 2V: 2ND + 3RD OSTEOTOMY WITH SCREW FIXATION XR foot LT 2V 01/15/2024 1:03 PM SIGNS AND SYMPTOMS: 2ND + 3RD OSTEOTOMY WITH SCREW FIXATION PROTOCOL: Intraoperative views of the left foot COMPARISON: None FINDINGS: Intraoperative views of the left foot demonstrate hardware manipulation of the second and third digits. Cumulative Air Kerma in mGy: 0.047 mGy XR/XR foot LT 2V Procedure Note Radiology, Radiologist, - 01/15/2024 [facility] Main [address] [address] XRay Report Signed Patient: Mignon Max LMR#: [id number] : 1970Acct:[id number] Age/Sex: 54 / FADM Date: 01/15/24 Loc: [place] Room:Type: [facility] Attending Dr: Ar Barron DPM Copies to: Ar Barron DPM Ordering Provider: Ar Barron DPM Date of Service: 01/15/24 XR/XR foot LT 2V: 2ND + 3RD OSTEOTOMY WITHSCREW FIXATION XR foot LT 2V 01/15/2024 1:03 PM SIGNS AND SYMPTOMS: 2ND + 3RD OSTEOTOMY WITH SCREW FIXATION PROTOCOL: Intraoperative views of the left foot COMPARISON: None FINDINGS: Intraoperative views of the left foot demonstrate hardware manipulation ofthe second and third digits. Cumulative Air Kerma in mGy: 0.047 mGy XR/XR foot LT 2V IMPRESSION: Intraoperative views of the left foot demonstrate hardware manipulation ofthe second and third digits. Impression dictated by: Neptali Oseguera M.D.01/15/2024 2:59 PM Dictation Location: [place] [address] Transcribed By: [place] 01/15/24 1459 Dictated By: Neptali Oseguera II, MD 01/15/24 1458 Signed By: <Electronically signed by Neptali Oseguera II, MD inOV> 01/15/24 1459 us Ar Barron DPM IMG XR PROCEDURES Final Res ult documented in this encounter Visit Diagnoses Not on filedocumented in this encounter Care Teams Textile Dyer Relationship Specialty Start Date End Date Karen Varela MD [address] [place] [address] PCP - General Family Medicine 03/04/24 Karen Varela MD [address] [place] [address] PCP - Medical [place] [employer] 08/26/23 08/25/99 documented as of this encounter
[2025-03-04] MEDS: FAMOTIDINE/PF 20 MG/2 ML VIAL IV (12:40)
[2025-03-04] MEDS: CEFAZOLIN SODIUM 2 GM/50 ML D5W PREMIX IV (12:41)
[2025-03-04] MEDS: IOHEXOL 240 MG/ML - 50 ML VIAL INJ (13:48)
--- NOTE | 2025-03-04 13:59 | P.URON_ITS ---
Urology Surgery Operative Note Operative Note Procedure Date: 03/04/25 Time Out Performed: yes Pre-op Diagnosis: Obstructing right ureteral calculus; left flank pain Post-op Diagnosis: same as pre-op Procedures performed: 1. Cystoscopy. 2. Right rigid ureteral dilation. 3. Right ureteroscopy. 4. Right ureteral calculus basket extraction. 5. Left retrograde pyelogram. 6. Placement of 6 Ecuadorean variable length left ureteral stent Anesthesia: SAILAJA Primary Surgeon: Kike Weaver Complications: None none Estimated blood loss (mL): 5 Findings: 1. Irregular stone at the S1 ureteral location. 2. 1.3 cm stone in the left renal pelvis Specimens: Right ureteral calculus Drains: 6 Ecuadorean variable length left ureteral stent Indications for Procedures: This lady has had a 3 mm right ureteral calculus for over 2 weeks. She has been unable to pass it and she has been having pain every day. She presented to the ER just the other day and a repeat CAT scan was done and her stone was still present and she had hydronephrosis. She developed left sided flank pain within the last 48 hours. On her CAT scan she did have a 1.3 cm left kidney stone which was nonobstructing at the time. She now presents for cystoscopy, right ureteroscopy, stone manipulation with laser and possible stent. She also is going to get the left retrograde pyelogram and possible left stent placement. She has signed an informed consent after risks were explained. Detailed description of Procedure: The patient was brought to the operating room and placed on the operating room table in the supine position. SCDs were placed on the lower extremities and turned on and functioning during the entire case. Timeout was done by all parties in the room. We all agreed upon the patient's identification and the planned procedures for this patient. Genn. anesthesia was then administered. The patient was then repositioned into the modified dorsal lithotomy position. All pressure points were satisfactorily padded. Genitalia were sterilely prepped and draped in usual fashion. I started by passing a 22 Ecuadorean Olympus cystoscope per urethra and into the bladder. Panendoscopy in the bladder revealed no evidence of any tumors or stones. There was inflammatory debris floating throughout. While using fluoroscopy I could not appreciate a stone. I passed a wire through the scope and up the right ureter into the kidney. I then used a 10 Ecuadorean dilator to dilate the distal right ureter. The scope was removed and a 10/12 Ecuadorean access sheath was passed over the wire and up to the L5 position. It felt as though I I could appreciate something within the ureter at the tip of the sheath. I then passed a flexible ureteroscope through the access sheath and into the ureter. I ascended up the ureter and then went into the kidney and scoped into all of the upper mid and lower pole calyces. I found no evidence of any stones. There were multiple James's plaques in the upper and mid pole calyces but no free stones. I brought the scope back down to the tip of the sheath. I removed the sheath as I brought the scope down. I then encountered the stone at the S1 position. I passed a nitinol basket and engaged the stone and was able to orient it in a linear fashion and get it out of the ureter. This was sent for stone analysis. The cystoscope was then passed back in the bladder. I elected not to place a right sided stent. I then used a 8 Ecuadorean cone-tip catheter and did a left retrograde pyelogram. This showed the large stone which was originating in the lower pole area but it encroached upon the renal pelvis. I presume this was causing her left-sided flank pain. I then passed a Glidewire through the scope up the ureter into the kidney. I then slid a 6 Ecuadorean variable length stent over the wire up into the left kidney. The wire was removed and there were good curls in the renal pelvis and in the bladder. The bladder was drained of its contents and the scope was then removed. She was then transferred to a rfort pierce bed after the anesthetic was reversed. She was then taken to recovery room in stable condition.
[2025-03-04] MEDS: SOLIFENACIN SUCCINATE 10 MG TABLET PO (14:24)
--- NOTE | 2025-03-04 14:44 | PC.NURSE ---
Up to bathroom and voided pink urine without difficulty
== END 2025-03-04 15:00 | disposition home or self-care (01) ==
PROVIDERS: Family Provider Family Medicine; Visit Provider Urology
PROC: (CPT 910; principal; 2025-03-04 12:00)
DX: N20.1 Calculus of ureter (principal); E03.9 Hypothyroidism, unspecified; N32.81 Overactive bladder; F31.9 Bipolar disorder, unspecified; R10.9 Unspecified abdominal pain; Z87.440 Personal history of urinary (tract) infections; R33.9 Retention of urine, unspecified; E66.01 Morbid (severe) obesity due to excess calories; Z68.41 Body mass index [BMI] 40.0-44.9, adult; Z90.710 Acquired absence of both cervix and uterus; K21.9 Gastro-esophageal reflux disease without esophagitis
CPT/HCPCS: 52332; 52352; 74420; 82365; 99999; J0690; J1100; J1885; J2250; J2405; J2704; J3010; J3490; Q9966

== ENCOUNTER 2025-03-17 13:44 | Outpatient (OUT) | payer OTHER, SELFPAY ==
--- OUTSIDE RECORDS SUMMARY | 2024-03-23 06:00 | XMS_ITS ---
Author Organization [facility] Address [address] [facility] [place] [address] Care Team Providers Care Medical Charge Entry Specialist Name Role Phone Ruth Mendes Primary Care Provider Kim Palencia REASON FOR VISIT 6 month f/u CHRONIC Social History Sex Assigned At : Social History Observation Description Sex Assigned At Female Encounters Encounter Location Date Provider Diagnosis [facility] [address] [place] [address] 03/23/2024 Kim Palencia Plan Of Treatment No Information Progress Notes * MARIA DEL ROSARIO DUGGAN LDOB:1969 (55 yo F)Acc No.[id number]:03/23/2024 Progress Notes Patient: MARIA DEL ROSARIO ZENG Appointment Provider: Nguyễn Palencia NP :1970 A ge:54 Y S ex:Female Date:03/23/2024 Address:[address] [place] [address], A PT Elieser FERANTONIONguyễnCED[facility]ALKJ-[id number] Pcp:Ruth Mendes Subjective: * Chief Complaints: * 1 . 6 month f/u CHRONIC. * Medical History: Objective: * Vitals: Assessment: Plan: * Treatment: * Images: * Electronic signature of Payton Palencia CNP on 03/17/2025 at 01:46 PM EDT Sign off status: Pending * Appointment Provider: Nguyễn Palencia NP Date: 03/23/2024 Generated for Printing/Faxing/eTransmitting on: 03/17/2025 01:46 PM EDT
--- OUTSIDE RECORDS SUMMARY | 2024-03-24 06:30 | XMS_ITS ---
Author Organization [facility] Address [address] [facility] [place] [address] Care Team Providers Care Rail Walker Name Role Phone Ruth Mendes Primary Care Provider REASON FOR VISIT 6 month f/u CHRONIC Social History Sex Assigned At : Social History Observation Description Sex Assigned At Female Encounters Encounter Location Date Provider Diagnosis [facility] [address] [facility] [place] [address] 03/24/2024 Ruth Mendes Plan Of Treatment No Information Progress Notes * TOIMARIA DEL ROSARIO STEIN LDOB:1969 (55 yo F)Acc No.[id number]:03/24/2024 Progress Notes Patient: MARIA DEL ROSARIO ZENG Provider: Elieser Holguin :1970 A ge:54 Y S ex:Female Date:03/24/2024 Address:[address] [place] [address], A PT [place]INA Mon, [id number] Subjective: * Chief Complaints: * 1 . 6 month f/u CHRONIC. * Medical History: Objective: * Vitals: Assessment: Plan: * Treatment: * Images: * Electronic signature of Joaquni Mendes CNP on 03/17/2025 at 01:46 PM EDT Sign off status: Pending * Provider: Elieser Holguin Date: 0 03/24/2024 Generated for Printi ng/Faxing/eTransmitting on: 0 03/17/2025 01:46 PM EDT
--- OUTSIDE RECORDS SUMMARY | 2024-05-20 07:00 | XMS_ITS ---
Author Organization [facility] Address [address] [facility] [place] [address] Care Team Providers Care Command Center Analyst Name Role Phone Ruth Mendes Primary Care Provider [phone] REASON FOR VISIT chronic care f/u Social History Sex Assigned At : Social History Observation Description Sex Assigned At Female Encounters Encounter Location Date Provider Diagnosis [facility] [address] [facility] [place] [address] 05/20/2024 Ruth Mendes Plan Of Treatment No Information Progress Notes * TOIMARIA DEL ROSARIO STEIN LDOB:1969 (55 yo F)Acc No.[id number]:05/20/2024 Progress Notes Patient: MARIA DEL ROSARIO ZENG Provider: Elieser Holguin :1970 A ge:54 Y S ex:Female Date:05/20/2024 Address:[address] [place] [address], A [place] Mon, [id number] Subjective: * Chief Complaints: * 1 . Chronic care f/u. * Medical History: Objective: * Vitals: Assessment: Plan: * Treatment: * Images: * Electronic signature of Joaquin Mendes CNP on 03/17/2025 at 01:47 PM EDT Sign off status: Pending * Provider: Elieser Holguin Date: 0 05/20/2024 Generated for Printi ng/Facharlesg/eTransmitting on: 0 03/17/2025 01:47 PM EDT
--- OUTSIDE RECORDS SUMMARY | 2025-03-17 13:46 | XMS_ITS | Encounter Summary ---
Author Organization [facility] Address [address] [place] [address] Phone Care Team Providers Care Exercise Instructor Name Role Phone Kim Palencia Primary Care P rovider Kim Palencia Primary Care P rovider Encounter Details Date Type Department Care Team (Late st Contact Info) Description 03/30/2023 Orders Only [facility] LEGACY [address] [place] [address] Conversion, Onbase Social History Tobacco Use Types [...] on filedocumented in this encounter Care Teams Exercise Instructor Relationship Specialty Start Date End Date Kim Palencia APRN-CNP [address] [place] [address] PCP - General 04/23/23 Kim Palencia APRN-CNP [address] [place] [address] PCP - General 03/31/23 04/22/23 documented as of this encounter
--- OUTSIDE RECORDS SUMMARY | 2025-03-17 13:46 | XMS_ITS | Encounter Summary ---
Author Organization [facility] Address [address] [place] [address] Phone Care Team Providers Care Director For Beauty School Name Role Phone Kim Palencia APRN-OIL EXPELLER OPERATOR Primary Care P rovider Kim Palencia APRN-OIL EXPELLER OPERATOR Primary Care P rovider Encounter Details Date Type Department Care Team (Late st Contact Info) Description 03/30/2023 Scanned Document [facility] LEGACY [address] [place] [address] Conversion, Onbase Social History Tobacco Use Types [...] on filedocumented in this encounter Care Teams Director For Beauty School Relationship Specialty Start Date End Date Kim Palencia APRN-CNP [address] [place] [address] PCP - General 04/23/23 Kim Palencia APRN-CNP [address] [place] [address] PCP - General 03/31/23 04/22/23 documented as of this encounter
--- OUTSIDE RECORDS SUMMARY | 2025-03-17 13:46 | XMS_ITS | Encounter Summary ---
Author Organization [facility] Address [address] [place] [address] Care Team Providers Care Manager Behavioral Name Role Phone JoanWilliam Primary Care Provider [phone] Karen Varela MD Primary Care Provider [phone] Karen Varela MD Unavailable [phone] Encounter Details Date Type Department Care Team (Late st Contact Info) Description 01/19/2023 Abstract [facility] OB [address] [facility] Harry [address] [place] [address] Aron Rivers DO [address] [facility] [address] [place] [address] Social History Tobacco Use Types Packs/Day Years [...] of Assessment Author 0 01/22/2023 11:02 AM Elieser Zabala MA * Question Answer Date of Assessment Author Q1: How often do you have a drink containing alcohol? Never 01/22/2023 11:02 AM Bibiana Zabala M A Q2: How many drinks containing alcohol do you have on a typical day when you are drinking? Patient does not drink 01/22/2023 11:02 AM Bibiana Zabala MA Q3: How often do you have [...] on filedocumented in this encounter Care Teams Manager Behavioral Relationship Specialty Start Date End Date William Franco DO PCP - General 01/22/23 12/11/23 Karen Varela MD [address] [place] [address] PCP - General Family Medicine 03/04/24 Karen Varela MD [address] [place] [address] PCP - Medical [place] [employer] 08/26/23 08/25/99 documented as of this encounter
--- OUTSIDE RECORDS SUMMARY | 2025-03-17 13:46 | XMS_ITS | Encounter Summary ---
Author Organization [facility] Address [address] [place] [address] Phone Care Team Providers Care Senior Property Accountant Name Role Phone Kim Palencia Primary Care P rovider Kim Palencia Primary Care P rovider Encounter Details Date Type Department Care Team (Late st Contact Info) Description 03/29/2023 Orders Only [facility] LEGACY [address] [place] [address] Conversion, Onbase Social History Tobacco Use Types [...] filedocumented in this encounter Care Teams Senior Property Accountant Relationship Specialty Start Date End Date Kim Palencia APRN-CNP [address] [place] [address] PCP - General 04/23/23 Kim Palencia APRN-CNP [address] [place] [address] PCP - General 03/31/23 04/22/23 documented as of this encounter
--- OUTSIDE RECORDS SUMMARY | 2025-03-17 13:46 | XMS_ITS | Encounter Summary ---
Author Organization [facility] Address [address] [place] [address] Phone Care Team Providers Care Escrow Agent Name Role Phone Kim Palencia Primary Care P rovider Kim Palencia Primary Care P rovider Encounter Details Date Type Department Care Team (Late st Contact Info) Description 03/31/[address] [facility] LEGACY [address] [place] [address] Conversion, Onbase Social History Tobacco Use Types [...] on filedocumented in this encounter Care Teams Escrow Agent Relationship Specialty Start Date End Date Kim Palencia APRN-CNP [address] [place] [address] PCP - General 04/23/23 Kim Palencia, SPORTING GOODS SALES ASSOCIATE-BODY TECHNICIAN/PAINTER [facility] [place] [address] PCP - General 03/31/23 04/22/23 documented as of this encounter
--- OUTSIDE RECORDS SUMMARY | 2025-03-17 13:46 | XMS_ITS | Encounter Summary ---
Author Organization [facility] Address [address] [place] [address] Phone Care Team Providers Care Scratcher Tender Name Role Phone Kim Palencia APRN-PIGMENT PUMPER Primary Care P rovider Kim Palencia APRN-PIGMENT PUMPER Primary Care P rovider Encounter Details Date Type Department Care Team (Late st Contact Info) Description 03/29/2023 Scanned Document [facility] LEGACY [address] [place] [address] Conversion, Onbase Social History Tobacco Use Types [...] on filedocumented in this encounter Care Teams Scratcher Tender Relationship Specialty Start Date End Date Kim Palencia APRN-CNP [address] [place] [address] PCP - General 04/23/23 Kim Palencia APRN-CNP [address] [place] [address] PCP - General 03/31/23 04/22/23 documented as of this encounter
--- OUTSIDE RECORDS SUMMARY | 2025-03-17 13:46 | XMS_ITS | Encounter Summary ---
Author Organization [facility] Address [address] [place] [address] Care Team Providers Care Supervisor Gear Repair Name Role Phone Karen Varela MD Primary Care Provider [phone] Karen Varela MD Unavailable [phone] Encounter Details Date Type Department Care Team (Late st Contact Info) Description 12/16/2023 Orders Only [facility] [address] [phone] Vilma Heard MA Social History Tobacco Use [...] Modality Radiographic Shaila ging us Suzie Palencia NAIL EXPERT IMG XR PROCEDURES Final Resul t documented in this encounter Visit Diagnoses Not on filedocumented in this encounter Care Teams Supervisor Gear Repair Relationship Specialty Start Date End Date Karen Varela MD [address] [place] [address] PCP - General Family Medicine 03/04/24 Karen Varela MD [address] [place] [address] PCP - Medical [place] [employer] 08/26/23 08/25/99 documented as of this encounter
--- OUTSIDE RECORDS SUMMARY | 2025-03-17 13:47 | XMS_ITS | Encounter Summary ---
Author Organization [facility] Address [address] [place] [address] Care Team Providers Care Owner/Photographer Name Role Phone Karen Varela MD Primary Care Provider Karen Varela MD Unavailable [phone] Encounter Details Date Type Department Care Team ([facility] st Contact Info) Description 01/17/2024 Abstract [facility] POD [address] [place] [address] Ar Barron DPM [address] [address] Social History Tobacco Use Types Packs/Day Years [...] on filedocumented in this encounter Care Teams Owner/Photographer Relationship Specialty Start Date End Date Karen Varela MD [address] [place] [address] PCP - General Family Medicine 03/04/24 Karen Varela MD [address] [place] [address] PCP - Medical [place] [employer] 08/26/23 08/25/99 documented as of this encounter
--- OUTSIDE RECORDS SUMMARY | 2025-03-17 13:47 | XMS_ITS | Encounter Summary ---
Author Organization [employer] Address [id number] [address] [place] [address] Care Team Providers Care Government Clerk Name Role Phone Kim Palencia APRN-DYE OPERATOR Primary Care Pro vider Encounter Details Date Type Department Care Team (Late st Contact Info) Description 09/15/2021 Orders Only [facility] [address] [place] [address] Jose Carlos Car MD [address] [place] [address] Hypotension, unspecified hypotension type Social History Tobacco [...] MD LAB BLOOD ORDERABLES Final Res ult [employer] documented in this encounter Visit Diagnoses Diagnosis Hypotension, unspecified hypotension type documented in this encounter Care Teams Government Clerk Relationship Specialty Start Date End Date Kim Palencia, BUSINESS SERVICES DIRECTOR-DYE OPERATOR PCP - General Nurse Practitioner 09/08/21 documented as of this encounter
--- OUTSIDE RECORDS SUMMARY | 2025-03-17 13:47 | XMS_ITS | Clinical Summary ---
Author Organization [employer] Address [id number] [address] [place] [address] Care Team Providers Care Stringed Instrument Tuner Name Role Phone Kim Palencia APRN-TEMPORARY RECEPTIONIST Primary Care Pro vider Allergies Active Allergy [...] Insurance [employer] Care Teams Stringed Instrument Tuner Relationship Specialty Start Date End Date Kim Palencia APRN-TEMPORARY RECEPTIONIST PCP - General Nurse Practitioner 09/08/21
--- OUTSIDE RECORDS SUMMARY | 2025-03-17 13:47 | XMS_ITS | Encounter Summary ---
Author Organization [facility] Address [address] [place] [place] [address] Care Team Providers Care Hypertrichologist Name Role Phone Karen Varela MD Primary Care Provider [phone] Karen Varela MD Unavailable [phone] Encounter Details Date Type Department Care Team (Late st Contact Info) Description 05/04/2024 Orders Only [facility] [address] [place] [address] Christy Burkett MA Breast cancer screening by [...] mammogram documented in this encounter Care Teams Hypertrichologist Relationship Specialty Start Date End Date Karen Varela MD [address] [place] [address] PCP - General Family Medicine 03/04/24 Karen Varela MD [address] [place] [address] PCP - Medical [place] [employer] 08/26/23 08/25/99 documented as of this encounter
--- OUTSIDE RECORDS SUMMARY | 2025-03-17 13:47 | XMS_ITS | Encounter Summary ---
Author Organization [facility] Address [address] [place] [address] Phone Care Team Providers Care Drawer In Stitch Bonding Machine Name Role Phone Kim Palencia Primary Care P rovider Kim Palencia Primary Care P rovider Encounter Details Date Type Department Care Team (Late st Contact Info) Description 04/13/2023 Scanned Document [facility] LEGACY [address] [place] [place] [address] Conversion, Onbase Social History Tobacco Use Types [...] on filedocumented in this encounter Care Teams Drawer In Stitch Bonding Machine Relationship Specialty Start Date End Date Kim Palencia APRN-CNP [address] [place] [address] PCP - General 04/23/23 Kim Palencia, TRAY CHECKER-IT PROGRAM ENGAGEMENT DIRECTOR [place] [place] [address] PCP - General 03/31/23 04/22/23 documented as of this encounter
--- OUTSIDE RECORDS SUMMARY | 2025-03-17 13:47 | XMS_ITS | Encounter Summary ---
Author Organization [facility] Address [address] [place] [address] Care Team Providers Care Fuel Efficient Automobile Designer Name Role Phone Karen Varela MD Primary Care Provider [phone] Karen Varela MD Unavailable [phone] Encounter Details Date Type Department Care Team ([facility] st Contact Info) Description 01/01/2024 External Result Encounter [facility] External Department Unsolicited Ar Barron DPM [address] [facility] [address] [place] [address] Social History Tobacco Use Types Packs/Day Years [...] documented in this encounter Plan of Treatment Not on file documented as of this encounter Procedures Procedure Name Priority Date/Time Associated Diagnosis Comments ECG 12-LEAD 01/01/2024 1:51 PM EDT documented in this encounter Results * ECG 12 lead (01/01/2024 1:51 PM EDT) 01/01/2024 1:51 PM EDT [facility] 01/01/2024 3:01 PM EDT [address] [address] Electrocardiograph Report Signed Patient: Mignon Max MR#: [id number] : 1970 Acct:[id number] Age/Sex: 53 / F ADM Date: 01/01/24 Loc: Room: Type: [facility] Attending Dr: Ar Barron DPM Ordering Provider: [...] is now present Confirmed by [facility]ASMO PURDY [facility] ([id number]) on 01/01/2024 3:01:10 PM Referred By: ALISA Electronically Signed By:TYRA KAUFMAN MD [facility] Transcribed By: MUS Signed By Tyra Kaufman MD, [facility] 01/01/24 1501 Procedure Note Tyra Kaufman MD - 01/01/[address] [place] [address] Electrocardiograph Report Signed Patient: Mignon Mxa LMR#: [id number] : 1970Acct:[id number] Age/Sex: 53 / FADM Date: 01/01/24 Loc: PS Room:Type: [facility] Attending Dr: Ar Barron DPM Ordering Provider: [...] is now present Confirmed by ERASMO PURDY [facility] (137) on 01/01/2024 3:01:10 PM Referred By: ALISA Electronically Signed By:[facility]AU[facility]MAN [facility] Transcribed By: MUS Signed By Tyra Kaufman MD, [facility] 01/01/24 1501 us Ar Barron DPM ECG ORDERABLES Final Resul t [address] [address], documented in this encounter Visit Diagnoses Not on filedocumented in this encounter Care Teams Fuel Efficient Automobile Designer Relationship Specialty Start Date End Date Karen Varela MD [address] [place] [address] PCP - General Family Medicine 03/04/24 Karen Varela MD [address] [place] [address] PCP - Medical [place] [employer] 08/26/23 08/25/99 documented as of this encounter
--- OUTSIDE RECORDS SUMMARY | 2025-03-17 13:47 | XMS_ITS | Clinical Summary ---
Author Organization [facility] Address [address] [place] [place] [address] Care Team Providers Care Child Welfare Specialist Name Role Phone Karen Varela MD Primary Care Provider [phone] Karen Varela MD Unavailable [phone] Allergies Active Allergy Reactions Criticality Noted Date [...] Take 100 mg by mouth Daily 02/10/20 24 Active potassium chloride CR (Klor-Con M20) 20 MEQ ER tablet Take 20 mEq by mouth Daily Take with food. 02/10/20 24 Active saccharomyces boulardii (Florastor) 250 MG capsule as directed Orally Active buPROPion XL (Wellbutrin XL) 300 MG 24 hr tablet Take 300 mg by mouth in the morning. 01/17/20 24 Active CALCIUM PO Take by mouth Activ [...] mouth Daily 90 tablet 3 05/21/20 24 025 Active levothyroxine (Synthroid, Levoxyl) 88 MCG tabletIndications :Acquired hypothyroidism TAKE 1 TABLET BY MOUTH ONCE DAILY 90 tablet 3 06/18/20 24 Active Ajovy 225 MG/1.5ML auto-injectorIndi cations:Chronic migraine [...] OTHER DAY 145 tablet 2 09/01/19 25 Active doxepin (SINEquan) 10 MG capsuleIndication s:Insomnia, unspecified type TAKE 1 TO 2 CAPSULE(S) BY MOUTH ONCE DAILY at bedtime 60 capsule 12/24/19 25 Active cefdinir (Omnicef) 300 MG capsule Take 300 mg by mouth Daily 01/13/20 25 Active ondansetron (Zofran) 8 MG tablet Take 8 mg by mouth every 8 (eight) hours if needed 03/18/20 24 Active tiZANidine (Zanaflex) 4 MG tabletIndications :Stress fracture of metatarsal with delayed healing, unspecified laterality, subsequent encounter Take 1 tablet (4 mg) by mouth at bedtime 90 tablet 1 02/11/20 25 Active ibuprofen 800 MG tabletIndications :Nephrolithiasis Take 1 tablet (800 mg) by mouth every 6 (six) hours if needed for mild pain for up to 10 days 40 tablet 3 02/17/20 25 025 Active Problems Problem Noted Date Diagnosed Date [...] Department Care Team Description 02/16/2025 Telephone [facility] [address] [place] [address] Karen Varela MD Medication Question 02/10/2025 Refill [facility] [address] [place] [address] Laura nKowles MA Stress fracture of metatarsal with delayed healing, unspecified laterality, subsequent encounter 01/20/2025 Refill [facility] [address] [place] [address] Laura Knowles MA Stress fracture of metatarsal with delayed healing, unspecified laterality, subsequent encounter 01/14/2025 12:20 PM EDT Office Visit [facility] [place] [address] [place] [address] Karen Varela MD Hypotension due to drugs (Primary Dx); Celiac disease (HCC); Chest pain, unspecified type; Morbid (severe) obesity due to excess calories ([facility]); Body mass index (BMI) 40.0-44.9, adult ([facility]-H[facility]); Bipolar disorder, current episode depressed, moderate ([facility]); OAB (overactive bladder) 01/14/2025 [employer] Interactive flowsheet [facility] [address] [place] [address] Karen Varela MD 01/14/2025 Travel 12/23/2024 Refill [facility] [address] [place] [address] Marsha Calderon NP Insomnia, unspecified type from [...] 01/14/2025 12:22 PM EDT Plan of Treatment Health Maintenance [...] Health Maintenance Insurance [employer] Care Teams Child Welfare Specialist Relationship Specialty Start Date End Date Karen Varela MD [address] [place] [address] PCP - General Family Medicine 03/04/24 Karen Varela MD [address] [place] [address] PCP - Medical [place] [employer] 08/26/23 08/25/99
--- OUTSIDE RECORDS SUMMARY | 2025-03-17 13:47 | XMS_ITS | Clinical Summary ---
Author Organization [facility] Address [address] [place] [address] Phone Care Team Providers Care Chemical Processor Name Role Phone Kim Palencia WIND PROJECTS SUPERVISOR-STATION MASTER Primary Care P janey Allergies Active Allergy [...] Department Care Team Description 01/07/2025 Scanned Document [facility] [address] [place] [address] Scanning, Generic Provider from Last [...] age to complete this topic HPV Vaccines Aged Out No longer eligi ble based on patient's age to complete this topic Hepatitis A Vaccines Aged Out No long [...] Narrative 01/07/2025 Ordered by an unspecified provider. Generic Provider Scanning CV STRESS PROCEDURES F inal Result from Last 3 Months Insurance [facility] Care Teams Chemical Processor Relationship Specialty Start Date End Date Kim Palencia, WIND PROJECTS SUPERVISOR-STATION MASTER [facility] [place] [address] PCP - General 04/23/23
--- OUTSIDE RECORDS SUMMARY | 2025-03-17 13:47 | XMS_ITS | Encounter Summary ---
Author Organization [facility] Address [address] [place] [address] Care Team Providers Care Switchboard Wire Worker Helper Name Role Phone Karen Varela MD Primary Care Provider [phone] Karen Varela MD Unavailable [phone] Encounter Details Date Type Department Care Team ([facility] st Contact Info) Description 01/15/2024 External Result Encounter [facility] External Department Unsolicited Ar Barron DPM [address] [facility] [address] [place] [address] Social History Tobacco Use Types Packs/Day Years [...] Lower Extremities, Foot Left [facility] 01/15/2024 2:58 PM EDT Impressions 01/15/2024 3:02 PM EDT Intraoperative views of the left foot demonstrate hardware manipulation of the second and third digits. Impression dictated by: Neptali Oseguera M.D.01/15/2024 2:59 PM Dictation Location: [facility]- Transcribed By: [facility] 01/15/24 1459 Dictated By: Neptali Oseguera II, MD 01/15/241457 Signed By: <Electronically signed by Neptali Oseguera II, MD in OV> 01/15/24 1459 Narrative 01/15/2024 3:02 PM EDT [address] [address] XRay Report Signed Patient: Mignon Max MR#: [id number] : 1970 Acct:[id number] Age/Sex: 54 / F ADM Date: 01/15/24 Loc: [place] Room: Type: [facility] Attending Dr: Ar Barron DPM Copies to: [...] 2V Procedure Note Radiology, Radiologist, - 01/15/[address] [address] XRay Report Signed Patient: Mignon Max LMR#: [id number] : 1970Acct:[id number] Age/Sex: 54 / FADM Date: 01/15/24 Loc: [place] Room:Type: [facility] Attending Dr: Ar Barron DPM Copies to: [...] Neptali Oseguera M.D.01/15/2024 2:59 PM Dictation Location: [place] [address] Transcribed By: [facility] 01/15/24 1459 Dictated By: Neptali Oseguera II, MD 01/15/24 1458 Signed By: <Electronically signed by Neptali Oseguera II, MD inOV> 01/15/24 1459 us Ar Barron DPM IMG XR PROCEDURES Final Res ult documented in this encounter Visit Diagnoses Not on filedocumented in this encounter Care Teams Switchboard Wire Worker Helper Relationship Specialty Start Date End Date Karen Varela MD [address] [place] [address] PCP - General Family Medicine 03/04/24 Karen Varela MD [address] [place] [address] PCP - Medical [place] [employer] 08/26/23 08/25/99 documented as of this encounter
--- OUTSIDE RECORDS SUMMARY | 2025-03-17 13:47 | XMS_ITS | Encounter Summary ---
Author Organization [employer] Address [id number] [address] [place] [address] Care Team Providers Care Market Gardener Name Role Phone Kim Palencia APRN-TAN Primary Care Pro vider Reason for Visit * Reason Comments Med Refill Encounter Details Date Type Department Care Team (Late st Contact Info) Description 08/13/2022 Refill [facility] [address] [facility] [address] [place] [address] Abida Castanon, PA-C [address] [facility] prov left org 11/24/23 [place] [address] Med Refill Social History Tobacco Use Types [...] on filedocumented in this encounter Care Teams Market Gardener Relationship Specialty Start Date End Date Kim Palencia APRN-NOTARY PUBLIC PCP - General Nurse Practitioner 09/08/21 documented as of this encounter
--- OUTSIDE RECORDS SUMMARY | 2025-03-17 13:47 | XMS_ITS | Encounter Summary ---
Author Organization [employer] Address [id number] [address] [place] [address] Care Team Providers Care Drafter Tool Design Name Role Phone Kim Palencia APRN-BREAKDOWN PERSON Primary Care Pro vider Encounter Details Date Type Department Care Team (Late st Contact Info) Description 09/26/2021 Orders Only [facility] [address] [place] [address] Jose Carlos Car MD [address] [place] [address] Hypotension, unspecified hypotension type Social History Tobacco [...] type documented in this encounter Care Teams Drafter Tool Design Relationship Specialty Start Date End Date Kim Palencia, INSPECTOR WEIGHTS AND MEASURES-BREAKDOWN PERSON PCP - General Nurse Practitioner 09/08/21 documented as of this encounter
--- OUTSIDE RECORDS SUMMARY | 2025-03-17 13:47 | XMS_ITS | Encounter Summary ---
Author Organization [facility] Address [address] [place] [address] Phone Care Team Providers Care Senior Operator Name Role Phone Kim Palencia Primary Care P janey Encounter Details Date Type Department Care Team (Late st Contact Info) Description 04/23/2023 Scanned Document [facility] LEGACY [address] [place] [address] Conversion, Onbase Social History Tobacco Use Types [...] filedocumented in this encounter Care Teams Senior Operator Relationship Specialty Start Date End Date Kim Palencia APRN-CNP [address] [place], [place] [id number] PCP - General 04/23/23 documented as of this encounter
--- OUTSIDE RECORDS SUMMARY | 2025-03-17 13:47 | XMS_ITS | Encounter Summary ---
Author Organization [facility] Address [address] [place] [address] Phone Care Team Providers Care Machine Finisher Name Role Phone Kim Palencia Primary Care P rovider Kim Palencia Primary Care P rovider Encounter Details Date Type Department Care Team (Late st Contact Info) Description 04/11/[address] [facility] LEGACY [address] [place] [place] [address] Conversion, Onbase Social History Tobacco Use Types [...] on filedocumented in this encounter Care Teams Machine Finisher Relationship Specialty Start Date End Date Kim Palencia APRN-CNP [address] [place] [address] PCP - General 04/23/23 Kim Palencia, GRAIN ORIGINATION SPECIALIST-PHARMACEUTICAL PLANT OPERATOR [place] [address] PCP - General 03/31/23 04/22/23 documented as of this encounter
--- OUTSIDE RECORDS SUMMARY | 2025-03-17 13:47 | XMS_ITS | Encounter Summary ---
Author Organization [employer] Address [facility] [id number] [address] [place] [address] Care Team Providers Care Bean Roaster Name Role Phone Kim Palencia APRN-BOOK REVIEWER Primary Care Pro vider Encounter Details Date Type Department Care Team (Late st Contact Info) Description 04/24/2023 Orders Only [facility] [address] [place] [phone] External, Scanning Provider Social History Tobacco Use [...] Edited Result - Final Performing Organization Address [facility] de Phone Number MANUALLY TRANSCRIBED RESULTS * Multiple labs (03/31/2023 11:23 AM EDT) us Scanning Provider External [place] IMAGING Final Result Performing Organization Address [facility] de Phone Number MANUALLY TRANSCRIBED RESULTS * Echo complete W/O contrast (03/31/2023 11:21 AM EDT) Anatomical Region Laterality Modality Chest N/A Ultrasound us Scanning Provider External CV ECHO ORDERABLES Fi nal Result * ECG 12 lead (03/30/2023 11:21 AM EDT) us Scanning Provider External ECG ORDERABLES Final Result Performing Organization Address [facility] de Phone Number MANUALLY TRANSCRIBED RESULTS documented in this encounter Visit Diagnoses Not on filedocumented in this encounter Care Teams Bean Roaster Relationship Specialty Start Date End Date Kim Palencia, SURGICAL CODER-BOOK REVIEWER PCP - General Nurse Practitioner 09/08/21 documented as of this encounter
--- OUTSIDE RECORDS SUMMARY | 2025-03-17 13:47 | XMS_ITS | Encounter Summary ---
Author Organization [employer] Address [facility] [id number] [address] [place] [address] Care Team Providers Care Glass Block Installer Name Role Phone Kim Palencia APRN-CHIEF DEPUTY CLERK/BAILIFF Primary Care Pro vider Encounter Details Date Type Department Care Team (Late st Contact Info) Description 03/27/2022 [facility] [address] [place] [phone] Taylor Cosme [place] Hypotension due to drugs [...] hypotension documented in this encounter Care Teams Glass Block Installer Relationship Specialty Start Date End Date Kim Palencia, MOTOR AND CONTROLS TESTER-CHIEF DEPUTY CLERK/BAILIFF PCP - General Nurse Practitioner 09/08/21 documented as of this encounter
--- OUTSIDE RECORDS SUMMARY | 2025-03-17 13:47 | XMS_ITS | Encounter Summary ---
Author Organization [employer] Address [facility] [id number] [address] [place] [address] Care Team Providers Care Audio Video Repairer Name Role Phone Kim Palencia APRN-ACCOUNT SERVICES SPECIALIST Primary Care Pro vider Encounter Details Date Type Department Care Team (Late st Contact Info) Description 09/08/2021 [facility] [address] [place] [phone] External, Scanning Provider Social History Tobacco Use [...] ECG ORDERABLES Final Result Performing Organization Address [facility] Co de Phone Number MANUALLY TRANSCRIBED RESULTS * Pulmonary function test (08/02/2021) us Scanning Provider External PFT ORDERABLES Final Result Performing Organization Address [facility] de Phone Number MANUALLY TRANSCRIBED RESULTS * ECG 12 lead (07/29/2021) us Scanning Provider External ECG ORDERABLES Final Result Performing Organization Address [facility] Phone Number MANUALLY TRANSCRIBED RESULTS documented in this encounter Visit Diagnoses Not on filedocumented in this encounter Care Teams Audio Video Repairer Relationship Specialty Start Date End Date Kim Palencia, SUPPLY CHAIN ASSOCIATE-ACCOUNT SERVICES SPECIALIST PCP - General Nurse Practitioner 09/08/21 documented as of this encounter
--- OUTSIDE RECORDS SUMMARY | 2025-03-17 13:47 | XMS_ITS | Encounter Summary ---
Author Organization [facility] Address [address] [place] [address] Care Team Providers Care Social Sciences Chair Name Role Phone Karen Varela MD Primary Care Provider [phone] Karen Varela MD Unavailable [phone] Encounter Details Date Type Department Care Team (Late st Contact Info) Description 04/03/2024 Orders Only [facility] [address] [place] [phone] Unallocated, Noms Provider, [address] [place] [address] Social History Tobacco Use Types Packs/Day Years [...] Procedure Name Priority Date/Time Associated Diagnosis Comments COLONOSCOPY Routine 03/27/2024 5:24 PM EDT documented in this encounter Results * Hm Colonoscopy (03/27/2024 5:24 PM EDT) Anatomical Region Laterality Modality Other us Noms Provider Unallocated HEALTH MAINTENANCE Final Result documented in this encounter Visit Diagnoses Not on filedocumented in this encounter Care Teams Social Sciences Chair Relationship Specialty Start Date End Date Karen Varela MD [address] [place] [address] PCP - General Family Medicine 03/04/24 Karen Varela MD [address] [place] [address] PCP - Medical [place] [employer] 08/26/23 08/25/99 documented as of this encounter
--- OUTSIDE RECORDS SUMMARY | 2025-03-17 13:47 | XMS_ITS | Encounter Summary ---
Author Organization [facility] Address [address] [place] [address] Phone Care Team Providers Care High School History Teacher Name Role Phone Kim Palencia Primary Care P rovider Kim Palencia Primary Care P rovider Encounter Details Date Type Department Care Team (Late st Contact Info) Description 04/01/2023 Scanned Document [facility] LEGACY [address] [place] [place] [address] Conversion, Onbase Social History Tobacco Use Types [...] on filedocumented in this encounter Care Teams High School History Teacher Relationship Specialty Start Date End Date Kim Palencia APRN-CNP [address] [place] [address] PCP - General 04/23/23 Kim Palencia, MANAGER OF APPLICATIONS DEVELOPMENT-DOUGH CUTTER [place] [address] PCP - General 03/31/23 04/22/23 documented as of this encounter
--- OUTSIDE RECORDS SUMMARY | 2025-03-17 13:47 | XMS_ITS | Patient Health Record ---
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 Stress is when someone feels tense, nervous, anxious, or cant sleep at night because their mind is troubled Very much In the past year have you sp ent more than 2 nights in a row in a long term, half-way, jail center, or juvenile correctional facility? No Are [...] W/U Status Risk Notes Problem Skin tag (52264743) Skin tag (L91.8) Active con firmed Problem Hypothyroidism (88158297) Hypothyroidism (acquired) (E03.9) Active confirmed Problem Gastroesophageal reflux disease (329471000) GERD without esophagitis (K21.9) Active confirmed Problem Migraine (05010342) Migraine (G43.909) Active confirmed Problem Constipation (74367770) Constipation, unspecified constipation type (K59.00) Active confirmed Problem SI - Stress incontinence (69943142) Stress incontinence (N39.3) Active confirmed Problem Superficial vein thrombosis (513536985) Superficial vein thrombosis (I82.890) Active confirmed Problem Allergic rhinitis (99283456) Allergic rhinitis, unspecified seasonality, unspecified trigger (J30.9) Active confirmed Plan Of Treatment No Information Insurance Providers Payer Name Payer Address Payer Phone Subscriber Number Group Number Insured Name Patient Relationship to Insured Coverage Start Date Coverage End Date [employer] [address] [address] [place] [phone] [id number] MARIA DEL ROSARIO DARNELL Self - patient is the insured 2 [facility] ed 22 [address] [address] [place] [address] [id number] MARIA DEL ROSARIO DARNELL Self - patient is the insured 8 0 zMEDICAID CFC after [facility]- termed 22 [address] [place] [address] [phone] [id number] MARIA DEL ROSARIO DARNELL Self - patient is the insured 8 0 [facility] rmed 22. [address] CLAIMS DEPT [facility] [place] [address] [id number] MARIA DEL ROSARIO DARNELL Self - patient is the insured 0 3 zMEDICAID CFC after [id number] 22 [address] [place] [address] [id number] MARIA DEL ROSARIO DARNELL Self - patient [...]
--- OUTSIDE RECORDS SUMMARY | 2025-03-17 13:47 | XMS_ITS | Encounter Summary ---
Author Organization [facility] Address [address] [place] [address] Care Team Providers Care Crown Ironer Operator Name Role Phone Karen Varela MD Primary Care Provider [phone] Karen Varela MD Unavailable [phone] Encounter Details Date Type Department Care Team (Late st Contact Info) Description 03/10/2024 Orders Only [facility] [address] [place] [phone] Unallocated, Noms Provider, [address] [place] [address] Social History Tobacco Use Types Packs/Day Years [...] on filedocumented in this encounter Care Teams Crown Ironer Operator Relationship Specialty Start Date End Date Karen Varela MD [address] [place] [address] PCP - General Family Medicine 03/04/24 Karen Varela MD [address] [place] [address] PCP - Medical [place] [employer] 08/26/23 08/25/99 documented as of this encounter
--- OUTSIDE RECORDS SUMMARY | 2025-03-17 13:47 | XMS_ITS | Encounter Summary ---
Author Organization [facility] Address [address] [place] [address] Phone Care Team Providers Care Science Instructor Name Role Phone Kim Palencia Primary Care P rovider Encounter Details Date Type Department Care Team (Late st Contact Info) Description 01/07/2025 Scanned Document [facility] [address] [place] [phone] Scanning, Generic Provider Social History Tobacco Use [...] on filedocumented in this encounter Care Teams Science Instructor Relationship Specialty Start Date End Date Kim Palencia APRN-CNP [address] [place] [address] PCP - General 04/23/23 documented as of this encounter
== END 2025-03-17 13:45 | disposition home or self-care (01) ==
LOC: PST 13:44
PROVIDERS: Family Provider Family Medicine; Visit Provider Urology
DX: Z01.818 Encounter for other preprocedural examination (principal); N20.0 Calculus of kidney

== ENCOUNTER 2025-03-18 07:01 | Day surgery (SDC) | payer OTHER, SELFPAY ==
--- OUTSIDE RECORDS SUMMARY | 2024-03-23 06:00 | XMS_ITS ---
Author Organization [facility] Address [address] [place] [address] Care Team Providers Care Chip Silo Tender Name Role Phone Ruth Mendes Primary Care Provider Kim Palencia [phone] REASON FOR VISIT 6 month f/u CHRONIC Social History Sex Assigned At : Social History Observation Description Sex Assigned At Female Encounters Encounter Location Date Provider Diagnosis [facility] [address] [place] [address] 03/23/2024 Kim Palencia Plan Of Treatment No Information Progress Notes * URBAN MARIA DEL ROSARIO LDOB:1969 (55 yo F)Acc No.[id number]:03/23/2024 Progress Notes Patient: MARIA DEL ROSARIO ZENG Appointment Provider: Nguyễn Palencia NP :1970 A ge:54 Y S ex:Female Date:03/23/2024 Address:[address] [place] [address], A PT Elieser [id number] Pcp:Ruth Mendes Subjective: * Chief Complaints: * 1 . 6 month f/u CHRONIC. * Medical History: Objective: * Vitals: Assessment: Plan: * Treatment: * Images: * Electronic signature of Payton Palencia CNP on 03/18/2025 at 07:04 AM EDT Sign off status: Pending * Appointment Provider: Nguyễn Palencia NP Date: 03/23/2024 Generated for Printing/Faxing/eTransmitting on: 03/18/2025 07:04 AM EDT
--- OUTSIDE RECORDS SUMMARY | 2024-03-24 06:30 | XMS_ITS ---
Author Organization [facility] Address [address] [facility] [place] [place] [address] Care Team Providers Care Tenter Feeder Name Role Phone Ruth Mendes Primary Care Provider REASON FOR VISIT 6 month f/u CHRONIC Social History Sex Assigned At : Social History Observation Description Sex Assigned At Female Encounters Encounter Location Date Provider Diagnosis [facility] [address] [facility] [place] [address] 03/24/2024 Ruth Mendes Plan Of Treatment No Information Progress Notes * TOIMARIA DEL ROSARIO STEIN LDOB:1969 (55 yo F)Acc No.[id number]:03/24/2024 Progress Notes Patient: MARIA DEL ROSARIO ZENG Provider: Elieser Holguin :1970 A ge:54 Y S ex:Female Date:03/24/2024 Address:[address] [place] [address], A PT REINA MonUNIVERS[facility] HOSPITALRZ-[id number] Subjective: * Chief Complaints: * 1 . 6 month f/u CHRONIC. * Medical History: Objective: * Vitals: Assessment: Plan: * Treatment: * Images: * Electronic signature of Joaquin Mendes CNP on 03/18/2025 at 07:04 AM EDT Sign off status: Pending * Provider: Elieser Holguin Date: 0 03/24/2024 Generated for Printi ng/Faxing/eTransmitting on: 0 03/18/2025 07:04 AM EDT
--- OUTSIDE RECORDS SUMMARY | 2024-05-20 07:00 | XMS_ITS ---
Author Organization [facility] es Address [address] [facility] [place] [address] Care Team Providers Care Engagement Quality Consultant Name Role Phone Ruth Mendes Primary Care Provider [phone] REASON FOR VISIT chronic care f/u Social History Sex Assigned At : Social History Observation Description Sex Assigned At Female Encounters Encounter Location Date Provider Diagnosis [facility] [address] [facility] [address] 05/20/2024 Ruth Mendes Plan Of Treatment No Information Progress Notes * TOIMARIA DEL ROSARIO STEIN LDOB:1969 (55 yo F)Acc No.[id number]:05/20/2024 Progress Notes Patient: MARIA DEL ROSARIO ZENG Provider: Elieser Holguin :1970 A ge:54 Y S ex:Female Date:05/20/2024 Address:[address] [place] [address], A PT [place] Mon, [id number] Subjective: * Chief Complaints: * 1 . Chronic care f/u. * Medical History: Objective: * Vitals: Assessment: Plan: * Treatment: * Images: * Electronic signature of Joaquin Mendes CNP on 03/18/2025 at 07:05 AM EDT Sign off status: Pending * Provider: Elieser Holguin Date: 0 05/20/2024 Generated for Printi ng/Facharlesg/eTransmitting on: 0 03/18/2025 07:05 AM EDT
[2025-03-18] VITALS (9 sets, daily range): BP systolic 112–141; BP diastolic 74–92; PULSE 62–88; TEMP 36.1–36.2; O2SAT 95–99; BMI 42.8
--- OUTSIDE RECORDS SUMMARY | 2025-03-18 07:04 | XMS_ITS | Encounter Summary ---
Author Organization [facility] Address [address] [place] [address] Phone Care Team Providers Care Wind Instrument Repairer Name Role Phone Kim Palencia Primary Care P rovider Kim Palencia Primary Care P rovider Encounter Details Date Type Department Care Team (Late st Contact Info) Description 04/11/2023 Scanned Document [facility] LEGACY [address] [place] [place] [address] Conversion, Onbase Social History Tobacco Use Types [...] on filedocumented in this encounter Care Teams Wind Instrument Repairer Relationship Specialty Start Date End Date Kim Palencia APRN-CNP [address] [place] [address] PCP - General 04/23/23 Kim Palencia, HARD HAT DIVER-BRAKE DRUM MOLDER [facility] [place] [address] PCP - General 03/31/23 04/22/23 documented as of this encounter
--- OUTSIDE RECORDS SUMMARY | 2025-03-18 07:04 | XMS_ITS | Encounter Summary ---
Author Organization [facility] Address [address] [place] [address] Phone Care Team Providers Care Filament Cutter Name Role Phone Kim Palencia APRN-MACHINIST INSTRUCTOR Primary Care P rovider Kim Palencia APRN-MACHINIST INSTRUCTOR Primary Care P rovider Encounter Details Date Type Department Care Team (Late st Contact Info) Description 03/29/2023 Scanned Document [facility] LEGACY [address] [place] [address] Conversion, Onbase Social History Tobacco Use Types [...] on filedocumented in this encounter Care Teams Filament Cutter Relationship Specialty Start Date End Date Kim Palencia APRN-CNP [address] [place] [address] PCP - General 04/23/23 Kim Palencia APRN-CNP [address] [place] [address] PCP - General 03/31/23 04/22/23 documented as of this encounter
--- OUTSIDE RECORDS SUMMARY | 2025-03-18 07:04 | XMS_ITS | Encounter Summary ---
Author Organization [facility] Address [address] [place] [address] Care Team Providers Care Blueprint Machine Operator Name Role Phone JoanWilliam Primary Care Provider [phone] Karen Varela MD Primary Care Provider [phone] Karen Varela MD Unavailable [phone] Encounter Details Date Type Department Care Team (Late st Contact Info) Description 01/19/2023 Abstract [facility] [address] [facility] [address] [place] [address] Aron Rivers DO [address] [facility] [address] [place] [address] Social History Tobacco Use Types Packs/Day Years [...] on filedocumented in this encounter Care Teams Blueprint Machine Operator Relationship Specialty Start Date End Date William Franco DO PCP - General 01/22/23 12/11/23 Karen Varela MD [address] [place] [address] PCP - General Family Medicine 03/04/24 Karen Varela MD [address] [place] [address] PCP - Medical [place] [employer] 08/26/23 08/25/99 documented as of this encounter
--- OUTSIDE RECORDS SUMMARY | 2025-03-18 07:04 | XMS_ITS | Encounter Summary ---
Author Organization [facility] Address [address] [place] [address] Phone Care Team Providers Care Unix System Administrator Name Role Phone Kim Palencia APRN-HARDWOOD FINISHER Primary Care P rovider Kim Palencia APRN-HARDWOOD FINISHER Primary Care P rovider Encounter Details Date Type Department Care Team (Late st Contact Info) Description 03/30/2023 Scanned Document [facility] LEGACY [address] [place] [address] Conversion, Onbase Social History Tobacco Use Types [...] on filedocumented in this encounter Care Teams Unix System Administrator Relationship Specialty Start Date End Date Kim Palencia APRN-CNP [address] [place] [address] PCP - General 04/23/23 Kim Palencia APRN-CNP [address] [place] [address] PCP - General 03/31/23 04/22/23 documented as of this encounter
--- OUTSIDE RECORDS SUMMARY | 2025-03-18 07:04 | XMS_ITS | Encounter Summary ---
Author Organization [facility] Address [address] [place] [address] Care Team Providers Care Viticulturist Name Role Phone Karen Varela MD Primary Care Provider [phone] Karen Varela MD Unavailable [phone] Encounter Details Date Type Department Care Team (Late st Contact Info) Description 12/16/2023 Orders Only [facility] [address] [phone] Vilma [place] MA Social History Tobacco Use [...] Modality Radiographic Shaila ging us Suzie Palencia MANAGER CLINICAL PHARMACY IMG XR PROCEDURES Final Resul t documented in this encounter Visit Diagnoses Not on filedocumented in this encounter Care Teams Viticulturist Relationship Specialty Start Date End Date Karen Varela MD [address] [place] [address] PCP - General Family Medicine 03/04/24 Karen Varela MD [address] [place] [address] PCP - Medical [place] [employer] 08/26/23 08/25/99 documented as of this encounter
--- OUTSIDE RECORDS SUMMARY | 2025-03-18 07:04 | XMS_ITS | Encounter Summary ---
Author Organization [facility] Address [address] [address] Phone Care Team Providers Care Buggy Driver Name Role Phone Kim Palencia Primary Care P rovider Kim Palencia Primary Care P rovider Encounter Details Date Type Department Care Team (Late st Contact Info) Description 03/29/2023 Orders Only [facility] LEGACY [address] [place] [address] Conversion, Onbase Social History Tobacco Use Types [...] on filedocumented in this encounter Care Teams Buggy Driver Relationship Specialty Start Date End Date Kim Palencia APRN-CNP [address] [place] [address] PCP - General 04/23/23 Kim Palencia APRN-CNP [address] [place] [address] PCP - General 03/31/23 04/22/23 documented as of this encounter
--- OUTSIDE RECORDS SUMMARY | 2025-03-18 07:04 | XMS_ITS | Encounter Summary ---
Author Organization [facility] Address [address] [place] [address] Phone Care Team Providers Care Electric Mule Driver Name Role Phone Kim Palencia Primary Care P rovider Kim Palencia Primary Care P rovider Encounter Details Date Type Department Care Team (Late st Contact Info) Description 04/01/2023 Scanned Document [facility] LEGACY [address] [place] [address] Conversion, Onbase Social History Tobacco Use Types [...] on filedocumented in this encounter Care Teams Electric Mule Driver Relationship Specialty Start Date End Date Kim Palencia APRN-CNP [address] [place] [address] PCP - General 04/23/23 Kim Palencia, FURNITURE MECHANIC-METAPHYSICIST [facility] [place] [address] PCP - General 03/31/23 04/22/23 documented as of this encounter
--- OUTSIDE RECORDS SUMMARY | 2025-03-18 07:04 | XMS_ITS | Encounter Summary ---
Author Organization [facility] Address [address] [place] [address] Phone Care Team Providers Care Geospatial Analyst Name Role Phone Kim Palencia Primary Care P rovider Kim Palencia Primary Care P rovider Encounter Details Date Type Department Care Team (Late st Contact Info) Description 03/31/2023 Scanned Document [facility] LEGACY [address] [place] [address] Conversion, Onbase Social History Tobacco Use Types [...] on filedocumented in this encounter Care Teams Geospatial Analyst Relationship Specialty Start Date End Date Kim Palencia APRN-CNP [address] [place] [address] PCP - General 04/23/23 Kim Palencia, SLITTER AND REWINDER-CLIMATOLOGY TEACHER [facility] [place] [address] PCP - General 03/31/23 04/22/23 documented as of this encounter
--- OUTSIDE RECORDS SUMMARY | 2025-03-18 07:04 | XMS_ITS | Encounter Summary ---
Author Organization [facility] Address [address] [place] [address] Phone Care Team Providers Care Guard Sergeant Name Role Phone Kim Palencia Primary Care P rovider Kim Palencia Primary Care P rovider Encounter Details Date Type Department Care Team (Late st Contact Info) Description 03/30/2023 Orders Only [facility] LEGACY [address] [place] [address] Conversion, Onbase Social History Tobacco Use Types [...] on filedocumented in this encounter Care Teams Guard Sergeant Relationship Specialty Start Date End Date Kim Palencia APRN-CNP [address] [place] [address] PCP - General 04/23/23 Kim Palencia APRN-CNP [address] [place] [address] PCP - General 03/31/23 04/22/23 documented as of this encounter
--- OUTSIDE RECORDS SUMMARY | 2025-03-18 07:05 | XMS_ITS | Encounter Summary ---
Author Organization [facility] Address [address] [place] [address] Phone Care Team Providers Care Material Handler 2Nd Shift Name Role Phone Kim Palencia Primary Care P rovider Encounter Details Date Type Department Care Team (Late st Contact Info) Description 01/07/2025 Scanned Document [facility] [address] [place] [address] Scanning, Generic Provider Social History Tobacco Use [...] on filedocumented in this encounter Care Teams Material Handler 2Nd Shift Relationship Specialty Start Date End Date Kim Palencia APRN-CNP [address] [place] [address] PCP - General 04/23/23 documented as of this encounter
--- OUTSIDE RECORDS SUMMARY | 2025-03-18 07:05 | XMS_ITS | Encounter Summary ---
Author Organization [facility] Address [address] [place] [address] Care Team Providers Care Investigations Manager Name Role Phone Karen Varela MD Primary Care Provider Karen Varela MD Unavailable [phone] Encounter Details Date Type Department Care Team ([facility] st Contact Info) Description 01/01/2024 External Result Encounter [facility] External Department Unsolicited Ar Barron DPM [address] [facility] [address] [place] [address] Social History Tobacco Use Types Packs/Day Years [...] 1:51 PM EDT) 01/01/2024 1:51 PM EDT [facility] 01/01/2024 3:01 PM EDT [address] [address] Electrocardiograph Report Signed Patient: Mignon Max MR#: [id number] : 1970 Acct:[id number] Age/Sex: 53 / F ADM Date: 01/01/24 Loc: Room: Type: [facility] Attending Dr: Ar Barron DPM Ordering [...] is now present Confirmed by [facility] Hannah ([id number]) on 01/01/2024 3:01:10 PM Referred By: ALISA Electronically Signed By:TYRA KAUFMAN MD [facility] Transcribed By: MUS Signed By Tyra Kaufman MD, [facility] 01/01/24 1501 Procedure Note Tyra Kaufman MD - 01/01/[address] [place] [address] Electrocardiograph Report Signed Patient: Mignon Max LMR#: [id number] : 1970Acct:[id number] Age/Sex: 53 / FADM Date: 01/01/24 Loc: PS Room:Type: [facility] Attending Dr: Ar Barron DPM Ordering [...] is now present Confirmed by ERASMO PURDY [facility] ([id number] on 01/01/2024 3:01:10 PM Referred By: ALISA Electronically Signed By:TYRA KAUFMAN [facility] Transcribed By: MUS Signed By Tyra Kaufman MD, [facility] 01/01/24 1501 us Ar Barron DPM ECG ORDERABLES Final Resul t [address] [address], documented in this encounter Visit Diagnoses Not on filedocumented in this encounter Care Teams Investigations Manager Relationship Specialty Start Date End Date Karen Varela MD [address] [place] [address] PCP - General Family Medicine 03/04/24 Karen Varela MD [address] [place] [address] PCP - Medical [place] [employer] 08/26/23 08/25/99 documented as of this encounter
--- OUTSIDE RECORDS SUMMARY | 2025-03-18 07:05 | XMS_ITS | Encounter Summary ---
Author Organization [facility] Address [address] [place] [address] Phone Care Team Providers Care Subpoena Server Name Role Phone Kim Palencia Primary Care P janey Encounter Details Date Type Department Care Team (Late st Contact Info) Description 04/23/2023 Scanned Document [facility] LEGACY [address] [place] [address] Conversion, Onbase Social History Tobacco Use Types [...] on filedocumented in this encounter Care Teams Subpoena Server Relationship Specialty Start Date End Date Kim Palencia APRN-CNP [address] [place], [place] [id number] PCP - General 04/23/23 documented as of this encounter
--- OUTSIDE RECORDS SUMMARY | 2025-03-18 07:05 | XMS_ITS | Encounter Summary ---
Author Organization [employer] Address [facility]-[id number] [address] [place] [address] Care Team Providers Care Cottonseed Meat Presser Name Role Phone Kim Palencia APRN-METER READERS SUPERVISOR Primary Care Pro vider Encounter Details Date Type Department Care Team (Late st Contact Info) Description 09/26/2021 Orders Only [facility] [address] [place] [phone] Jose Carlos Car MD [address] [place] [address] Hypotension, unspecified hypotension type Social History Tobacco [...] type documented in this encounter Care Teams Cottonseed Meat Presser Relationship Specialty Start Date End Date Kim Palencia, TEMPORARY OFFICE ASSISTANT-METER READERS SUPERVISOR PCP - General Nurse Practitioner 09/08/21 documented as of this encounter
--- OUTSIDE RECORDS SUMMARY | 2025-03-18 07:05 | XMS_ITS | Encounter Summary ---
Author Organization [facility] Address [address] [place] [address] Care Team Providers Care Lead Cargo Mover Name Role Phone Karen Varela MD Primary Care Provider [phone] Karen Varela MD Unavailable [phone] Encounter Details Date Type Department Care Team (Late st Contact Info) Description 04/03/2024 Orders Only [facility] [address] [place] [phone] Unallocated, Noms Provider, [address] [place] [address] Social History Tobacco Use Types Packs/Day Years [...] on filedocumented in this encounter Care Teams Lead Cargo Mover Relationship Specialty Start Date End Date Karen Varela MD [address] [place] [address] PCP - General Family Medicine 03/04/24 Karen Varela MD [address] [place] [address] PCP - Medical [place] [employer] 08/26/23 08/25/99 documented as of this encounter
--- OUTSIDE RECORDS SUMMARY | 2025-03-18 07:05 | XMS_ITS | Encounter Summary ---
Author Organization [employer] Address [id number] [address] [place] [address] Care Team Providers Care Cut Press Operator Name Role Phone Kim Palencia APRN-CLAIMS ADJUSTER CROP Primary Care Pro vider Encounter Details Date Type Department Care Team (Late st Contact Info) Description 09/08/2021 [facility] [address] [place] [phone] External, Scanning Provider Social History Tobacco Use [...] ECG ORDERABLES Final Result Performing Organization Address City/[facility] Co de Phone Number MANUALLY TRANSCRIBED RESULTS * Pulmonary function test (08/02/2021) us Scanning Provider External PFT ORDERABLES Final Result Performing Organization Address [facility] de Phone Number MANUALLY TRANSCRIBED RESULTS * ECG 12 lead (07/29/2021) us Scanning Provider External ECG ORDERABLES Final Result Performing Organization Address [facility] Phone Number MANUALLY TRANSCRIBED RESULTS documented in this encounter Visit Diagnoses Not on filedocumented in this encounter Care Teams Cut Press Operator Relationship Specialty Start Date End Date Kim Palencia, MAKE UP OPERATOR HELPER-CLAIMS ADJUSTER CROP PCP - General Nurse Practitioner 09/08/21 documented as of this encounter
--- OUTSIDE RECORDS SUMMARY | 2025-03-18 07:05 | XMS_ITS | Encounter Summary ---
Author Organization [facility] Address [address] [place] [address] Phone Care Team Providers Care Hospital Recruiter Name Role Phone Kim Palencia Primary Care P rovider Kim Palencia Primary Care P rovider Encounter Details Date Type Department Care Team (Late st Contact Info) Description 04/13/2023 Scanned Document [facility] LEGACY [address] [place] [place] [address] Conversion, Onbase Social History Tobacco Use Types [...] on filedocumented in this encounter Care Teams Hospital Recruiter Relationship Specialty Start Date End Date Kim Palencia APRN-CNP [address] [place] [address] PCP - General 04/23/23 Kim Palencia, EFFICIENCY ANALYST-COMPOSING MACHINE OPERATOR/TENDER [place] [address] PCP - General 03/31/23 04/22/23 documented as of this encounter
--- OUTSIDE RECORDS SUMMARY | 2025-03-18 07:05 | XMS_ITS | Patient Health Record ---
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 Stress is when someone feels tense, nervous, anxious, or cant sleep at night because their mind is troubled Very much In the past year have you sp ent more than 2 nights in a row in a care home, residential, residential center, or juvenile correctional facility? No Are [...] W/U Status Risk Notes Problem Skin tag (81605238) Skin tag (L91.8) Active con firmed Problem Hypothyroidism (93216196) Hypothyroidism (acquired) (E03.9) Active confirmed Problem Gastroesophageal reflux disease (048085583) GERD without esophagitis (K21.9) Active confirmed Problem Migraine (42825642) Migraine (G43.909) Active confirmed Problem Constipation (12921612) Constipation, unspecified constipation type (K59.00) Active confirmed Problem SI - Stress incontinence (70574162) Stress incontinence (N39.3) Active confirmed Problem Superficial vein thrombosis (707722480) Superficial vein thrombosis (I82.890) Active confirmed Problem Allergic rhinitis (06991796) Allergic rhinitis, unspecified seasonality, unspecified trigger (J30.9) Active confirmed Plan Of Treatment No Information Insurance Providers Payer Name Payer Address Payer Phone Subscriber Number Group Number Insured Name Patient Relationship to Insured Coverage Start Date Coverage End Date [employer] SuperMed [address] [address] [place] [phone] [id number] MARIA DEL ROSARIO DARNELL Self - patient is the insured 2 [facility] ed [address] [address] [place] [address] [id number] MARIA DEL ROSARIO DARNELL Self - patient is the insured 8 0 zMEDICAID C[employer] after [facility]- termed 22 [address] [place] [address] [id number] MARIA DEL ROSARIO DARNELL Self - patient is the insured 8 0 [facility] rmed 22. [address] [place] [address] [id number] MARIA DEL ROSARIO DARNELL Self - patient is the insured 0 3 zMEDICAID CFC after [place]-t ermed 22 [address] [place] [address] [phone] [id number] MARIA DEL ROSARIO DARNELL Self - patient [...]
--- OUTSIDE RECORDS SUMMARY | 2025-03-18 07:05 | XMS_ITS | Clinical Summary ---
Author Organization [facility] Address [address] [place] [address] Care Team Providers Care Audio Visual Specialist Name Role Phone Karen Varela MD Primary Care Provider [phone] Karen Varela MD Unavailable [phone] Allergies Active Allergy Reactions Criticality Noted [...] Department Care Team Description 02/16/2025 Telephone [facility] [address] [place] [address] Karen Varela MD Medication Question 02/10/2025 Refill [facility] [address] [place] [address] Laura Knowles MA Stress fracture of metatarsal with delayed healing, unspecified laterality, subsequent encounter 01/20/2025 Refill [facility] [address] [place] [address] Laura Knowles MA Stress fracture of metatarsal with delayed healing, unspecified laterality, subsequent encounter 01/14/2025 12:20 PM EDT Office Visit [facility] [place] [address] [place] [address] Karen Varela MD Hypotension due to drugs (Primary Dx); Celiac disease (HCC); Chest pain, unspecified type; Morbid (severe) obesity due to excess calories ([facility]); Body mass index (BMI) 40.0-44.9, adult ([facility]-H[facility]); Bipolar disorder, current episode depressed, moderate ([facility]); OAB (overactive bladder) 01/14/2025 [facility] flowsheet [facility] [address] [place] [address] Karen Varela MD 01/14/2025 Travel 12/23/2024 Refill [facility] [address] [place] [address] Marsha Calderon NP Insomnia, unspecified type from [...] Health Maintenance Insurance [employer] Care Teams Audio Visual Specialist Relationship Specialty Start Date End Date Karen Varela MD [address] [place] [address] PCP - General Family Medicine 03/04/24 Karen Varela MD [address] [place] [address] PCP - Medical [place] [employer] 08/26/23 08/25/99
--- OUTSIDE RECORDS SUMMARY | 2025-03-18 07:05 | XMS_ITS | Encounter Summary ---
Author Organization [employer] Address [id number] [address] [place] [address] Care Team Providers Care Paper Bag Making Machinist Name Role Phone Kim Palencia APRN-EXECUTIVE OFFICER SPECIAL WARFARE TEAM Primary Care Pro vider Encounter Details Date Type Department Care Team (Late st Contact Info) Description 09/15/2021 Orders Only [facility] [address] [place] [phone] Jose Carlos Car MD [address] [place] [address] Hypotension, unspecified hypotension type Social History Tobacco [...] MD LAB BLOOD ORDERABLES Final Res ult [employer] documented in this encounter Visit Diagnoses Diagnosis Hypotension, unspecified hypotension type documented in this encounter Care Teams Paper Bag Making Machinist Relationship Specialty Start Date End Date Kim Palencia, LEATHER SHAVER-EXECUTIVE OFFICER SPECIAL WARFARE TEAM PCP - General Nurse Practitioner 09/08/21 documented as of this encounter
--- OUTSIDE RECORDS SUMMARY | 2025-03-18 07:05 | XMS_ITS | Encounter Summary ---
Author Organization [facility] Address [address] [place] [address] Care Team Providers Care Senior Storage Engineer Name Role Phone Karen Varela MD Primary Care Provider [phone] Karen Varela MD Unavailable [phone] Encounter Details Date Type Department Care Team (Late st Contact Info) Description 05/04/2024 Orders Only [facility] [address] [place] [address] Christy Burkett MA Breast cancer screening by [...] mammogram documented in this encounter Care Teams Senior Storage Engineer Relationship Specialty Start Date End Date Karen Varela MD [address] [place] [address] PCP - General Family Medicine 03/04/24 Karen Varela MD [address] [place] [address] PCP - Medical [place] [employer] 08/26/23 08/25/99 documented as of this encounter
--- OUTSIDE RECORDS SUMMARY | 2025-03-18 07:05 | XMS_ITS | Encounter Summary ---
Author Organization [employer] Address [facility][id number] [address] [place] [address] Care Team Providers Care Front Desk Admin Name Role Phone Kim Palencia APRN-HEDGE FUND ACCOUNTANT Primary Care Pro vider Encounter Details Date Type Department Care Team (Late st Contact Info) Description 04/24/2023 Orders Only [facility] [address] [place] [phone] External, Scanning Provider Social History Tobacco Use [...] Edited Result - Final Performing Organization Address [facility] de Phone Number MANUALLY TRANSCRIBED RESULTS * Multiple labs (03/31/2023 11:23 AM EDT) us Scanning Provider External CA IMAGING Final Result Performing Organization Address [facility] de Phone Number MANUALLY TRANSCRIBED RESULTS * Echo complete W/O contrast (03/31/2023 11:21 AM EDT) Anatomical Region Laterality Modality Chest N/A Ultrasound us Scanning Provider External CV ECHO ORDERABLES Fi nal Result * ECG 12 lead (03/30/2023 11:21 AM EDT) us Scanning Provider External ECG ORDERABLES Final Result Performing Organization Address [facility] de Phone Number MANUALLY TRANSCRIBED RESULTS documented in this encounter Visit Diagnoses Not on filedocumented in this encounter Care Teams Front Desk Admin Relationship Specialty Start Date End Date Kim Palencia, MISSION COORDINATOR-HEDGE FUND ACCOUNTANT PCP - General Nurse Practitioner 09/08/21 documented as of this encounter
--- OUTSIDE RECORDS SUMMARY | 2025-03-18 07:05 | XMS_ITS | Clinical Summary ---
Author Organization [facility] Address [address] [place] [address] Phone Care Team Providers Care Clinical Trial Associate Name Role Phone Kim Palencia JUNIOR PROJECT COORDINATOR-NURSE Primary Care P janey Allergies Active Allergy [...] Team Description 01/07/2025 Scanned Document [facility] [address] [place] [address] Scanning, Generic Provider from Last [...] Result from Last 3 Months Insurance MEDICAL [facility] MED MEDICAL [facility] MED Care Teams Clinical Trial Associate Relationship Specialty Start Date End Date Kim Palencia, JUNIOR PROJECT COORDINATOR-NURSE [facility]ly [facility] [place] [address] PCP - General 04/23/23
--- OUTSIDE RECORDS SUMMARY | 2025-03-18 07:05 | XMS_ITS | Clinical Summary ---
Author Organization [employer] Address [id number] [address] [place] [address] Care Team Providers Care Bone Drier Operator Name Role Phone Kim Palencia APRN-LASER TECHNICIAN Primary Care Pro vider Allergies Active Allergy [...] Insurance [place] MEDICAID [employer] Care Teams Bone Drier Operator Relationship Specialty Start Date End Date Kim Palencia APRN-LASER TECHNICIAN PCP - General Nurse Practitioner 09/08/21
--- OUTSIDE RECORDS SUMMARY | 2025-03-18 07:05 | XMS_ITS | Encounter Summary ---
Author Organization [employer] Address [facility]-[id number] [address] [place] [address] Care Team Providers Care Wastewater Design Engineer Name Role Phone Kim Palencia APRN-TAN Primary Care Pro vider Reason for Visit * Reason Comments Med Refill Encounter Details Date Type Department Care Team (Late st Contact Info) Description 08/13/2022 Refill [facility] [address] [place] [phone] Abida Castanon, PA-C [address] [facility] prov left org 11/24/23 [place] [address] Med Refill Social History Tobacco Use Types [...] on filedocumented in this encounter Care Teams Wastewater Design Engineer Relationship Specialty Start Date End Date Kim Palencia APRN-CABLE TOOL OPERATOR PCP - General Nurse Practitioner 09/08/21 documented as of this encounter
--- OUTSIDE RECORDS SUMMARY | 2025-03-18 07:05 | XMS_ITS | Encounter Summary ---
Author Organization [facility] Address [address] [place] [address] Care Team Providers Care Student Support Services Director Name Role Phone Karen Varela MD Primary Care Provider [phone] Karen Varela MD Unavailable [phone] Encounter Details Date Type Department Care Team ([facility] st Contact Info) Description 01/15/2024 External Result Encounter [facility] External Department Unsolicited Ar Barron DPM [address] [facility] [address] [place] [address] Social History Tobacco Use Types Packs/Day Years [...] Laterality Modality Lower Extremities, Foot Left [facility] 01/15/2024 2:58 PM EDT Impressions 01/15/2024 3:02 PM EDT Intraoperative views of the left foot demonstrate hardware manipulation of the second and third digits. Impression dictated by: Neptali Oseguera M.D.01/15/2024 2:59 PM Dictation Location: [facility]- Transcribed By: [facility] 01/15/24 1459 Dictated By: Neptali Oseguera II, MD 01/15/241457 Signed By: <Electronically signed by Neptali Oseguera II, MD in [place]> 01/15/24 1459 Narrative 01/15/2024 3:02 PM EDT [address] [address] XRay Report Signed Patient: Mignon Max MR#: [id number] : 1970 Acct:[id number] Age/Sex: 54 / F ADM Date: 01/15/24 Loc: [place] Room: Type: [facility] Attending Dr: Ar Barron DPM [...] 2V Procedure Note Radiology, Radiologist, - 01/15/[address] [address] XRay Report Signed Patient: Mignon Max LMR#: [id number] : 1970Acct:[id number] Age/Sex: 54 / FADM Date: 01/15/24 Loc: [place] Room:Type: [facility] Attending Dr: Ar Barron DPM [...] Neptali Oseguera M.D.01/15/2024 2:59 PM Dictation Location: [place] [address] Transcribed By: [facility] 01/15/24 1459 Dictated By: Neptali Oseguera II, MD 01/15/24 1458 Signed By: <Electronically signed by Neptali Oseguera II, MD inOV> 01/15/24 1459 us Ar Barron DPM IMG XR PROCEDURES Final Res ult documented in this encounter Visit Diagnoses Not on filedocumented in this encounter Care Teams Student Support Services Director Relationship Specialty Start Date End Date Karen Varela MD [address] [place] [address] PCP - General Family Medicine 03/04/24 Karen Varela MD [address] [place] [address] PCP - Medical [place] [employer] 08/26/23 08/25/99 documented as of this encounter
--- OUTSIDE RECORDS SUMMARY | 2025-03-18 07:05 | XMS_ITS | Encounter Summary ---
Author Organization [facility] Address [address] [place] [address] Care Team Providers Care Articulation Officer Name Role Phone Karen Varela MD Primary Care Provider [phone] Karen Varela MD Unavailable [phone] Encounter Details Date Type Department Care Team ([facility] st Contact Info) Description 01/17/2024 Abstract [facility] [address] [place] [phone] Ar Barron DPM [address] [address] Social History Tobacco Use Types Packs/Day Years [...] on filedocumented in this encounter Care Teams Articulation Officer Relationship Specialty Start Date End Date Karen Varela MD [address] [place] [address] PCP - General Family Medicine 03/04/24 Karen Varela MD [address] [place] [address] PCP - Medical [place] Commercial 08/26/23 08/25/99 documented as of this encounter
--- OUTSIDE RECORDS SUMMARY | 2025-03-18 07:05 | XMS_ITS | Encounter Summary ---
Author Organization [employer] Address [id number] [address] [place] [address] Care Team Providers Care Cord Tire Builder Name Role Phone Kim Palencia APRN-BUILDINGS AND GROUNDS SUPERINTENDENT Primary Care Pro vider Encounter Details Date Type Department Care Team (Late st Contact Info) Description 03/27/2022 [facility] [address] [place] [phone] Taylor Cosme MA Hypotension due to drugs [...] hypotension documented in this encounter Care Teams Cord Tire Builder Relationship Specialty Start Date End Date Kim Palencia, AUTOMATIC LATHE TENDER-BUILDINGS AND GROUNDS SUPERINTENDENT PCP - General Nurse Practitioner 09/08/21 documented as of this encounter
--- OUTSIDE RECORDS SUMMARY | 2025-03-18 07:06 | XMS_ITS | Encounter Summary ---
Author Organization [facility] Address [address] [place] [address] Care Team Providers Care Brim Plater Name Role Phone Karen Varela MD Primary Care Provider [phone] Karen Varela MD Unavailable [phone] Encounter Details Date Type Department Care Team (Late st Contact Info) Description 03/10/2024 Orders Only [facility] [address] [place] [address] Unallocated, Noms Provider, [address] [place] [address] Social History Tobacco Use Types Packs/Day Years [...] on filedocumented in this encounter Care Teams Brim Plater Relationship Specialty Start Date End Date Karen Varela MD [address] [place] [address] PCP - General Family Medicine 03/04/24 Karen Varela MD [address] [place] [address] PCP - Medical [place] Commercial 08/26/23 08/25/99 documented as of this encounter
[2025-03-18] MEDS: CEFAZOLIN SODIUM 2 GM/50 ML D5W PREMIX IV (07:52)
--- NOTE | 2025-03-18 09:18 | PM.URSON ---
Urology Surgery Operative Note Operative Note Procedure Date: 03/18/25 Time Out Performed: yes Pre-op Diagnosis: Left nephrolithiasis status post left stent placement Post-op Diagnosis: same as pre-op Procedures performed: 1. Cystoscopy. 2. Left stent changed to 6 [place] variable length. 3. Left ureteroscopy. 4. Left pyeloscopy. 5. Thulium laser lithotripsy of a large left renal stone. Anesthesia: KAILEYA Primary Surgeon: Kike Weaver Complications: None Estimated blood loss (mL): 5 Findings: Large and very hard lower pole nephrolithiasis Specimens: None Drains: 6 [place] variable length left ureteral stent Indications for Procedures: This lady had bilateral stones. She had left flank pain. A few weeks ago she underwent right ureteroscopic stone extraction and left stent placement. She now presents for left ureteroscopy thulium laser lithotripsy and possible stent change. She has signed an informed consent after risks were explained. Detailed description of Procedure: The patient was brought to the operating room and placed on the operating room table in the supine position. SCDs were placed on the lower extremities and turned on and functioning during the entire case. Timeout was done by all parties in the room. We all agreed upon the patient's identification and the planned procedures for this patient. Genn. anesthesia was then administered. The patient was then repositioned into the modified dorsal lithotomy position. All pressure points were satisfactorily padded. Genitalia were sterilely prepped and draped in usual fashion. I started by passing a 22 [place] Olympus cystoscope into the bladder. The old stent was minimally encrusted. A flexible grasper was used to grasp the end of the stent and bring it out the urethral meatus. A Glidewire was passed up the stent into the kidney and the old stent was removed. A 10/12 [place] ureteral access sheath was passed over the wire up to the L5 position. The wire and stylette were then removed. A flexible ureteroscope was passed through the access sheath and into the ureter. I then ascended up the ureter and then went into the renal pelvis and then into the upper mid and lower pole calyces. Her large stone burden was located in the lower pole. I then passed a 270 ? laser fiber through the scope and made contact with the stone. The thulium laser was used initially at 8 W in the dusting mode and then up to 10 W. This stone did begin dusting but when we arrived at the black interior it was very hard. We ultimately had to switch to fragmentation in the captive mode at 10 W. This was able to fragment the stone. we then went back to dusting and finished the job. Upon completion, there was no evidence of any formed stone remaining. There was simply dust and submillimeter granules. A wire was then passed into the scope and the scope was removed. The access sheath was then removed. The cystoscope was backloaded over the wire and passed into the bladder and a new 6 [place] variable length stent was passed over the wire up to the kidney. The wire was removed and there were good curls in the kidney and in the bladder. The bladder was drained of its contents. The scope was then removed. The anesthetic was then reversed. She was then transferred to a [facility] bed and wheeled to PACU in stable condition.
[2025-03-18] MEDS: SOLIFENACIN SUCCINATE 10 MG TABLET PO (09:30)
== END 2025-03-18 10:25 | disposition home or self-care (01) ==
PROVIDERS: Family Provider Family Medicine; Visit Provider Urology
PROC: (CPT 918; principal; 2025-03-18 08:00)
DX: N20.0 Calculus of kidney (principal); Z87.440 Personal history of urinary (tract) infections; N32.81 Overactive bladder; R33.9 Retention of urine, unspecified; E66.01 Morbid (severe) obesity due to excess calories; Z68.41 Body mass index [BMI] 40.0-44.9, adult; Z90.710 Acquired absence of both cervix and uterus; E03.9 Hypothyroidism, unspecified; K21.9 Gastro-esophageal reflux disease without esophagitis; F31.9 Bipolar disorder, unspecified
CPT/HCPCS: 52356; 76000; J0690; J1100; J1885; J2250; J2405; J2704; J3010